=== PATIENT | female | born 1950 | race Caucasian/White ===

== ENCOUNTER 2020-06-30 08:25 | Outpatient (REF) | payer MEDICARE, SELFPAY ==
--- NOTE | 2020-06-30 08:30 | MM_ITS ---
EXAMINATION: MM SCREENING DIGITAL BREAST TOMOSYNTHESIS, BILATERAL CLINICAL INFORMATION: Screening. Asymptomatic. The lifetime risk of breast cancer based on the Tyrer-Cuzick Model is 5%. COMPARISON: Mammography: 06/28/19, 04/18/18, 03/03/17, 11/20/15 TECHNIQUE: Digital breast tomosynthesis is performed in both the craniocaudal and mediolateral oblique views along with computer-aided detection (CAD). Synthesized 2D images are generated from the tomosynthesis. FINDINGS: There are scattered areas of fibroglandular density (ACR BI-RADS breast composition Category b). There are no significant masses, abnormal calcifications, or other abnormalities. MM/MM tomosynthesis screening BI IMPRESSION: No mammographic evidence of malignancy. ASSESSMENT: BI-RADS 1: Negative RECOMMENDATION: Routine annual mammography screening. This patient's information was entered into a reminder system with a target due date for their next mammogram.
== END 2020-06-30 08:26 | disposition home or self-care (01) ==
LOC: HO.MAMMO 08:25
PROVIDERS: PCP Internal Medicine; Visit Provider Internal Medicine
DX: Z12.31 Encounter for screening mammogram for malignant neoplasm of breast (principal)
CPT/HCPCS: 77063; 77067

== ENCOUNTER 2021-05-21 14:11 | Outpatient (REF) | payer MEDICARE, SELFPAY ==
--- NOTE | ~2021-05-21 | MM_ITS ---
EXAMINATION: MM DIAGNOSTIC DIGITAL BREAST TOMOSYNTHESIS, BILATERAL Targeted left breast ultrasound CLINICAL INFORMATION: Left breast nodule 9:00 position The lifetime risk of breast cancer based on the Tyrer-Cuzick Model is 3.9%. COMPARISON: Mammography: June 30, 2020 and studies dating back to January 03, 2012 TECHNIQUE: Digital breast tomosynthesis is performed in both the craniocaudal and mediolateral oblique views along with computer-aided detection (CAD). Synthesized 2D images are generated from the tomosynthesis. Targeted left breast ultrasound FINDINGS: The breasts are almost entirely fatty (ACR BI-RADS breast composition Category a). There are no significant masses, abnormal calcifications, or other abnormalities. Targeted ultrasound evaluation of the left breast did not demonstrate any abnormal cystic or solid mass. No region of abnormal distal sound shadowing identified. Results are discussed with the patient at time of visit. MM/MM tomosynthesis diagnostic BI IMPRESSION: No mammographic or ultrasound evidence of malignancy. ASSESSMENT: BI-RADS 1: Negative RECOMMENDATION: Routine annual mammography screening due in 12 months. This patient's information was entered into a reminder system with a target due date for their next mammogram.
--- NOTE | ~2021-05-21 | US_ITS ---
EXAMINATION: US DIAGNOSTIC ULTRASOUND BREAST, LEFT CLINICAL INFORMATION: Left breast pain. Question nodule.. COMPARISON: Mammography of same day. TECHNIQUE: Ultrasound of the breast is performed with real-time saravia scale imaging and color Doppler. FINDINGS: There is no focal suspicious finding. There is no solid mass, architectural abnormality, duct ectasia, or edema in the soft tissue planes. Results are discussed with the patient at time of visit. US/US breast LT limited IMPRESSION: No ultrasound abnormality identified in region of patient's left breast pain/question nodule. ASSESSMENT: BI-RADS 1: Negative RECOMMENDATION: Routine annual mammography screening due in 12 months. Clinical follow-up This patient's information was entered into a reminder system with a target due date for their next mammogram.
== END 2021-05-21 14:12 | disposition home or self-care (01) ==
LOC: HO.MAMMO 14:11
PROVIDERS: PCP Internal Medicine; Visit Provider Obstetrics & Gynecology
DX: N64.4 Mastodynia (principal); N63.25 Unspecified lump in the left breast, overlapping quadrants
CPT/HCPCS: 76642; 77062; 77066

== ENCOUNTER 2021-07-02 08:04 | Outpatient (REF) | payer MEDICARE, SELFPAY ==
--- NOTE | ~2021-07-02 | MM_ITS ---
EXAMINATION: BONE DENSITOMETRY CLINICAL INDICATION: Menopause. COMPARISON: This is the patient's baseline examination. TECHNIQUE: Using a [employer] DXA System (software version: 13.1) manufactured by [employer], dual-energy x-ray absorptiometry was performed of the lumbar spine and left hip. The images are of good technical quality. Summary results are attached. FINDINGS: AP SPINE L1-L4: BMD 1.160 g/cm2, Z-score 0.5, T-score -0.2, normal. LEFT FEMUR, NECK: BMD 0.707 g/cm2, Z-score -1.3, T-score -2.4, osteopenia. LEFT FEMUR, TOTAL: BMD 0.829 g/cm2, Z-score -0.6, T-score -1.4, osteopenia. IDENTIFIED RISK FACTORS: Menopause, height loss, hysterectomy, bilateral oophorectomy, secondary osteoporosis. HISTORY OF FRACTURE: None listed. MEDICATIONS: Calcium, vitamin D. MM/XR DEXA axial skeleton IMPRESSION: 1. DIAGNOSIS: Osteopenia based on the lowest T-score value of -2.4 in the femoral neck applying World Health Organization criteria. 2. 10-YEAR FRACTURE RISK PREDICTION, FRAX: Major osteoporotic fracture (clinical spine, forearm, hip or shoulder) 12.7%. Hip fracture 3.0%. 3. Treatment Recommendations: NOF guidelines recommend consideration for treatment in postmenopausal women and men age 50 and older presenting with the following: -A hip or vertebral (clinical or morphometric) fracture. -T-score less than or equal to -2.5 at the femoral neck or spine after appropriate evaluation to exclude secondary causes. -Low bone mass at the hip or spine and a 10-year fracture probability by FRAX of greater than or equal to 3% for hip fracture or greater than or equal to 20% for major osteoporotic fracture based on the [place] adapted WHO algorithm. 4. Other Recommendations: All treatment decisions require clinical judgment and consideration of individual patient factors, including patient preferences, comorbidities, previous drug use, risk factors not captured in the FRAX model (e.g. frailty, falls, vitamin D deficiency, increased bone turnover, interval significant decline in bone density) and possible under or overestimation of fracture risk by FRAX. Additional medical evaluation for secondary cause of low bone mineral density may be appropriate. FUTURE SCAN RECOMMENDATION: People with diagnosed cases of osteoporosis or at high risk for fracture should have regular bone mineral density tests. For patients eligible for Medicare, routine testing is allowed once every 2 years. The testing frequency can be increased to one year for patients who have rapidly progressing disease, those who are receiving or discontinuing medical therapy to restore bone mass, or have additional risk factors.
== END 2021-07-02 08:05 | disposition home or self-care (01) ==
LOC: HO.MAMMO 08:04
PROVIDERS: Visit Provider Internal Medicine
DX: Z13.820 Encounter for screening for osteoporosis (principal); M85.80 Other specified disorders of bone density and structure, unspecified site; Z78.0 Asymptomatic menopausal state; Z90.722 Acquired absence of ovaries, bilateral; Z79.899 Other long term (current) drug therapy
CPT/HCPCS: 77080

== ENCOUNTER 2022-03-25 11:54 | Emergency (ER) | payer MEDICARE, SELFPAY ==
--- NOTE | 2022-03-25 | ECG_ITS ---
Test Reason : fall Blood Pressure : / mmHG Vent. Rate : 052 BPM Atrial Rate : 052 BPM P-R Int : 198 ms QRS Dur : 120 ms QT Int : 496 ms P-R-T Axes : 040 -42 002 degrees QTc Int : 461 ms Sinus bradycardia Left axis deviation Left ventricular hypertrophy with QRS widening ( R in aVL , [place] product ) Possible Lateral infarct , age undetermined Abnormal ECG When compared with ECG of 16-OCT-2017 12:05, Questionable change in QRS duration Borderline criteria for Lateral infarct are now Present QRS axis Shifted left Heart rate has decreased Referred By: Generic ED Physician Electronically Signed By:SWAPNIL BLACK
--- NOTE | 2022-03-25 12:06 | ED.NAVMDI ---
HPI - Nausea/Vomiting/Diarrhea General Chief complaint: Syncope Stated complaint: N/v Time Seen by Provider: 03/25/22 12:04 Source: patient and old records reviewed Mode of arrival: ambulatory Limitations: no limitations History of Present Illness HPI Narrative: 71 yp female with history of endomentrial cancer 4 years ago s/p hysterectomy, depression, hx gastric bypass w/ anastomotic ulcers, hx asthma who presents to the ER for evaluation of acute onset of nausea and feeling weak and unwell when she was getting her blood drawn at about 11am today in the Heme-Onc office. She reports Prior to the blood being drawn she was feeling her baseline self this morning. She has not eaten breakfast yet today. She took all of her morning medications, which she cannot remember the names of. she states she has not gotten her blood drawn in a few years. she reports as soon as she was getting her blood drawn she felt nauseous, weak, lethargic. She denies any chest pain or shortness of breath. No vomiting episodes and no abdominal pain. she reports feeling weak and lightheaded, like she was going to pass out. No loss of consciousness. No history of syncope. She was given sublingual Zofran. MD elicited complaint: nausea and vomiting Onset (ago): hour(s) Associated nausea: Yes Associated abdominal pain: No Location of pain: none Severity: moderate Exacerbating factors: none Relieving factors: none Associated symptoms: loss of appetite Related Data Home Medications Medication Instructions Recorded Confirmed ascorbic acid (vitamin C) 500 mg 500 mg PO DAILY 05/13/20 03/25/22 capsule multivitamin 1 tab PO DAILY 05/13/20 03/25/22 pyridoxine (vitamin B6) 50 mg 25 mg PO DAILY 05/13/20 03/25/22 tablet omeprazole 20 mg capsule,delayed 20 mg PO . 3 times a week 05/17/20 03/25/22 release sucralfate 1 gram tablet 1 g PO QID 05/17/20 03/25/22 calcium carbonate 600 mg calcium 600 mg PO DAILY 02/23/21 03/25/22 (1,500 mg) tablet (Calcium) turmeric 400 mg capsule 400 mg PO DAILY 02/23/21 03/25/22 Previous Rx's Medication Instructions Recorded loperamide 2 mg tablet (Imodium 3 mg PO DAILY PRN loose stool 90 02/23/21 A-D) days #135 tabs Allergies Allergy/AdvReac Type Severity Reaction Status Date / Time No Known Allergies Allergy Verified 03/25/22 09:04 [No Known Allergies*] Review of Systems Review of Systems: Constitutional: No Fever, No Chills ENT/Mouth: No sore throat, No Rhinorrhea, No Swallowing Difficulty Eyes: No Eye Pain, No Swelling, No Redness Cardiovascular: No Chest Pain, No SOB, No Orthopnea, No Edema Respiratory: No Cough, No Sputum, No Wheezing, No dyspnea Gastrointestinal: + Nausea, No Vomiting, No Diarrhea, No abdominal Pain, No Hematochezia, No Melena Genitourinary: No Dysuria, No Urinary Frequency, No Hematuria Musculoskeletal: No joint pain, No Myalgias Skin: No Skin Lesions, No rash Neuro: +Weakness, No Numbness, No Dizziness, + Headache Psych: No Anxiety/Panic, No Depression Heme/Lymph: No Bruising, No Lymphadenopathy Endocrine: No Polyuria, No Polydipsia Gastrointestinal: Gastrointestinal: Reports nausea PMFSH Past Medical History Medical History Anastomotic ulcer S/P gastric bypass Endometrial adenocarcinoma Family history of malignant neoplasm of ovary in first degree relative History of depression Hx of cancer of endometrium Menopause Mild intermittent asthma Varicose veins of both lower extremities Surgical History H/O gastric bypass History of endoscopy History of hysterectomy History of hysteroscopy Hx of cholecystectomy Hx of varicose veins Family History Family History (Updated 03/25/22 @ 09:[address] CMA) Father History of angina Cancer of prostate High cholesterol Anxiety Mental health disorder Mother Myocardial infarction Maternal Grandfather Stomach cancer Maternal Grandmother Colon cancer Myocardial infarction Paternal Grandfather Myocardial infarction Paternal Grandmother Myocardial infarction Brother No problems noted. Brother No problems noted. Daughter No problems noted. Sister Ovarian cancer, Onset Age: 64 Son No problems noted. Social History Social History (Updated 03/25/22 @ 09:[address] CMA) Household Members: Spouse Housing: House Are you a primary critical care clinical nurse specialist to a significant other at home: No Do you presently have visiting nurse or other home services: No Alcohol intake: never Patient Tobacco Use Status: Never used Tobacco e-Cigarette/Vaping Use: Never Used Second Hand Smoke Exposure: No Advance Directives: No Advance Directives Information Provided: No service: No Current occupational status: retired Physical Exam Vital Signs: Vital Signs: Last Vital Signs Temp 97.6 F 03/25/22 12:09 Pulse 55 03/25/22 13:23 Resp 18 03/25/22 12:09 BP 140/62 H 03/25/22 13:23 Pulse Ox 99 03/25/22 12:09 O2 Del Method 03/25/22 12:09 Oxygen Flow Rate 2 03/25/22 12:09 BMI result Body Mass Index 37.5 Appearance: Alert. Oriented X3. Laying on the stretcher with eyes closed and a cool cloth on her face Eyes: Pupils equal, round and reactive to light. ENT: Pharynx normal. Neck: Normal inspection. Neck supple. CVS: Normal heart rate and rhythm. Pulses normal. Respiratory: No respiratory distress. Breath sounds normal. Abdomen: Soft and nontender. +BS x4 Skin: Skin warm and dry. Normal skin color. Normal skin turgor. No rashes. Extremities: No lower extremity edema. Neuro: Oriented X 3. No motor deficit. No sensory deficit. Course Course Course Narrative: 71-year-old female present to the ER for evaluation of nausea and weakness after she was getting her blood drawn today. Still nauseated and slightly lethargic on arrival but oriented nonfocal. She is hemodynamically stable. Her lab workup from upstairs is unremarkable. Will give her a L of IV fluids and monitor her response to Zofran. Most likely vasovagal episode with blood draw. Doubt acute cardiac event. Reevaluation(s) Reevaluation #1: Patient is feeling much better. She is tolerating p.o. and ambulating around the emergency department. She would like to be discharged home. Comfortable DC home with planned follow-up with her PCP and Dr. Reid for further evaluation and management. Stable for DC return precautions were discussed. MDM - Nausea/Vomiting/Diarrhea Medical Records Attestation: I reviewed the patient's medical records. Lab Data Attestation: I reviewed the patient's lab results. ECG Data Attestation: I personally reviewed and interpreted this ECG as follows: ECG interpretation date: 03/25/22 ECG interpretation time: 15:09 Prior ECG tracings: available for review Interpretation: sinus bradycardia sinus bradycardia ventricular rate 52 beats per minute common normal LA interval, T-wave inversion in V1 and lead 3. No ST segment elevations or depressions Critical Care Time Critical Care Time Critical Care Time: No Discharge Plan Discharge Clinical Impression: Vasovagal near syncope Patient Disposition: Home, Self-Care Instructions: Near Syncope (ED) Additional Instructions: Your lab workup today was unremarkable. Your EKG did not show any concerning signs. Recommend rest today, drink plenty of water. Follow up with your doctor and Dr. Reid. If you develop new or worsening symptoms call 911 or come back to the ER for further evaluation. Prescriptions: No Action calcium carbonate [Calcium 600] 600 mg calcium (1,500 mg) tablet 600 mg PO DAILY turmeric 400 mg capsule 400 mg PO DAILY loperamide [Imodium A-D] 2 mg tablet 3 mg PO DAILY PRN (Reason: loose stool) 90 Days Qty: 135 0RF pyridoxine (vitamin B6) 50 mg tablet 25 mg PO DAILY multivitamin Tablet 1 tab PO DAILY ascorbic acid (vitamin C) 500 mg capsule 500 mg PO DAILY omeprazole 20 mg capsule,delayed release(DR/EC) 20 mg PO . 3 times a week Label Comments: prescribed by Dr. Barragan sucralfate 1 gram tablet 1 g PO QID Label Comments: prescribed by Dr. Barragan Referrals: Mildred Reid MD [Physician] -
[2022-03-25 12:09] VITALS: BP 140/67; PULSE 56; RESP 18; TEMP 36.4; O2SAT 99; BMI 37.5
[2022-03-25] MEDS: 0.9 % Sodium Chloride 1,000 ML 999 ML IVCONT (12:41)
[2022-03-25 13:23] VITALS: BP 140/62; PULSE 55
== END 2022-03-25 16:50 | disposition home or self-care (01) ==
PROVIDERS: Physician Assistant; Emergency Provider Emergency Medicine
DX: R55 Syncope and collapse (principal); R11.2 Nausea with vomiting, unspecified; R00.1 Bradycardia, unspecified; Z79.899 Other long term (current) drug therapy
CPT/HCPCS: 93005; 96360; 96361; 99284; 99285

== ENCOUNTER 2022-04-29 14:21 | Outpatient (REF) | payer MEDICARE, SELFPAY ==
[2022-04-29 16:40] LABS: MANUAL DIFF FLAG NO
[2022-04-29 16:45] LABS: Basophils Absolute Auto 0.1 X10*3/uL (0.0-0.2); Basophils Percent Auto 0.8 % (0-2); Eosinophils Absolute Auto 0.1 X10*3/uL (0.0-0.4); Eosinophils Percent Auto 1.4 % (0-4); Hematocrit 42.6 % (37.0-47.0); Hemoglobin 13.9 g/dl (12.0-16.0); Imm Gran Abs Auto 0.05 X10*3/uL (0.00-0.03); Imm Gran Pct Auto 0.5 % (0.0-0.4); Lymphocytes Absolute Auto 2.5 X10*3/uL (1.2-4.9); Lymphocytes Percent Auto 24.1 % (20-40); Mean Corpuscular HGB Conc 32.6 g/dl (31.0-35.0); Mean Corpuscular Volume 88.8 fL (80.0-98.0); Mean Platelet Volume 9.7 fL (9.4-12.3); Monocytes Absolute Auto 0.6 X10*3/uL (0.1-1.2); Monocytes Percent Auto 5.8 % (2-11); Neutrophils Absolute Auto 6.9 x10*3/uL (2.0-8.3); Neutrophils Percent Auto 67.4 % (45-73); Platelet Count 365 X10*3/uL (160-400); Red Cell Distribution Width 13.2 % (11.0-16.0); White Blood Count 10.3 X10*3/uL (4.8-10.8)
[2022-04-29 16:50] LABS: Anion Gap 18 (12-20); Blood Urea Nitrogen 9 mg/dL (9-16); Calcium 8.9 mg/dL (8.4-10.2); Carbon Dioxide 25 mmol/L (22-29); Chloride 101 mmol/L (96-108); Estimated Glomerular Filt Rate > 60; Glucose Fasting 100 mg/dL (60-99); Magnesium 2.3 mg/dL (1.6-2.6); Potassium 4.8 mmol/L (3.3-5.1); Sodium 139 mmol/L (135-145)
== END 2022-04-29 14:22 | disposition home or self-care (01) ==
LOC: HO.HMGCLDS 14:21
PROVIDERS: PCP Internal Medicine; Visit Provider Internal Medicine
DX: A04.72 Enterocolitis due to Clostridium difficile, not specified as recurrent (principal)
CPT/HCPCS: 36415; 80048; 83735; 85025

== ENCOUNTER 2022-05-27 08:43 | Outpatient (REF) | payer MEDICARE, SELFPAY ==
--- NOTE | ~2022-05-27 | MM_ITS ---
EXAMINATION: MM SCREENING DIGITAL BREAST TOMOSYNTHESIS, BILATERAL CLINICAL INFORMATION: Screening. Asymptomatic. COMPARISON: Mammography: 05/21/2021, 06/30/2020, 06/28/2019; left breast ultrasound 05/21/2021 TECHNIQUE: Digital breast tomosynthesis is performed in both the craniocaudal and mediolateral oblique views along with computer-aided detection (CAD). Synthesized 2D images are generated from the tomosynthesis. FINDINGS: The breasts are almost entirely fatty (ACR BI-RADS breast composition Category a). Background stromal and fibroglandular densities are normal. No developing density or interval mass or architectural abnormality. No abnormal calcifications. The axilla are unremarkable. No skin thickening or coarsening of the Allan's ligaments. No significant changes. MM/MM tomosynthesis screening BI IMPRESSION: No mammographic evidence of malignancy. ASSESSMENT: BI-RADS 1: Negative RECOMMENDATION: Routine annual mammography screening. This patient's information was entered into a reminder system with a target due date for their next mammogram.
== END 2022-05-27 08:44 | disposition home or self-care (01) ==
LOC: HO.MAMMO 08:43
PROVIDERS: PCP Internal Medicine; Visit Provider Internal Medicine
DX: Z12.31 Encounter for screening mammogram for malignant neoplasm of breast (principal)
CPT/HCPCS: 77063; 77067

== ENCOUNTER 2022-09-27 12:46 | Outpatient (AMB) | payer MEDICARE, SELFPAY ==
--- NOTE | 2022-09-27 13:13 | A.OFFPC_ITS ---
Vital Signs 09/27/22 13:17 Height 5 ft 1 in Weight 187 lb BMI 35.3 BP 118/70 Blood Pressure Location Lt brachial Position Sitting Pulse 63 Pulse Source Pulse Oximeter Pulse Oximetry (%) 100 Oxygen Delivery Method Room Air Intake Visit Reasons: Lump on Private Area Intake Note: Pt is here today c/o lump rectal area Allergies No Known Allergies [No Known Allergies*] Allergy (Verified 09/27/22 14:05) Medication List - Last Reconciled 09/27/22 by Ayla Henley MD ascorbic acid (vitamin C) 500 mg PO DAILY calcium carbonate (Calcium) 600 mg PO DAILY famotidine (Pepcid AC) 10 mg PO BEDTIME multivitamin 1 tab PO DAILY pyridoxine (vitamin B6) 25 mg PO DAILY sucralfate 1 g PO QID turmeric 400 mg PO DAILY Tobacco use date assessed: 09/27/22 Fall risk assessment: No Falls in past year Last assessed Fall Risk: 09/27/22 [facility] Medical History Anastomotic ulcer S/P gastric bypass C. difficile colitis Endometrial adenocarcinoma External hemorrhoids without complication Family history of malignant neoplasm of ovary in first degree relative History of depression Hx of cancer of endometrium Menopause Mild intermittent asthma Varicose veins of both lower extremities Surgical History H/O gastric bypass History of endoscopy History of hysterectomy History of hysteroscopy Hx of cholecystectomy Hx of varicose veins Family History Father History of angina Cancer of prostate High cholesterol Anxiety Mental health disorder Mother Myocardial infarction Maternal Grandfather Stomach cancer Maternal Grandmother Colon cancer Myocardial infarction Paternal Grandfather Myocardial infarction Paternal Grandmother Myocardial infarction Brother No problems noted. Brother No problems noted. Daughter No problems noted. Sister Ovarian cancer, Onset Age: 64 Son No problems noted. Social History Household Members: Spouse Housing: House Are you a primary hourly caregiver to a significant other at home: No Do you presently have visiting nurse or other home services: No Alcohol intake: never Patient Tobacco Use Status: Never used Tobacco e-Cigarette/Vaping Use: Never Used Second Hand Smoke Exposure: No service: No Current occupational status: retired Cognitive needs: No Hearing needs: No Vision needs: Yes Questionnaire PHQ-9 Over the last 2 weeks, how often have you been bothered by any of the following problems? 1. Little interest or pleasure in doing things: not at all 2. Feeling down, depressed, or hopeless: not at all 3. Trouble falling or staying asleep, or sleeping too much: not at all 4. Feeling tired or having little energy: not at all 5. Poor appetite or overeating: not at all 6. Feeling bad about yourself - or that you are a failure or have let yourself or your family down: not at all 7. Trouble concentrating on things, such as reading the newspaper or watching television: not at all 8. Moving or speaking so slowly that other people could have noticed. Or the opposite - being so fidgety or restless that you have been moving around a lot more than usual: not at all 9. Thoughts that you would be better off or of hurting yourself in some way: not at all Total score: 0 Depression Screening Interpretation: Negative 29201 - PHQ-9 Billing: Yes Source: Developed by Drs. Jim Winn, Lavonne Hobbs, Brian Sutton and colleagues, with an educational maki from [employer]. Thrive Questionnaire Declines Thrive assessment: No Date Thrive assessed: 09/27/22 I am a: Patient What is your living situation today?: I have a steady place to live Within the past 12 months, did the food you bought not last and you didn't have the money to get more?: Never true Within the past 12 months, did you worry whether your food would run out before you got money to buy more?: Never true Do you have trouble paying for medicines?: No Do you have trouble getting transportation to medical appointments?: No Do you have trouble paying your heating and electricity bill?: No Do you have trouble taking care of your child, family member or friend?: No Do you have trouble with day-to-day activities such as bathing, preparing meals, shopping, managing finances, etc.?: No Are you currently unemployed and looking for a job?: No Are you interested in more education?: No THANH-7 AMB Questionnaire THANH-7 Date THANH - 7 assessed: 09/27/22 Feeling nervous, anxious, or on edge: 0 = Not at all Not being able to stop or control worryin = Not at all Worrying too much about different things: 0 = Not at all Trouble relaxin = Not at all Being so restless that it is hard to sit still: 0 = Not at all Becoming easily annoyed or irritable: 0 = Not at all Feeling afraid as if something awful might happen: 0 = Not at all Total THANH-7 score (0-4 normal; 5-9 mild; 10-14 moderate; 15-21 severe): 0 Source: Developed by Drs. Jim Winn, Lavonne Hobbs, Brian Sutton and colleagues, with an educational maki from [employer]. THANH-7 Assessment Billing THANH-7 Assessment Tool: THANH-7 Assessment 77612 Physical exam (Primary Care) Vital Signs: Last Vital Signs Pulse 63 09/27/22 13:17 BP 118/70 09/27/22 13:17 Pulse Ox 100 09/27/22 13:17 Oxygen Delivery Method Room Air 09/27/22 13:17 BMI result Body Mass Index 35.3 Tobacco/Smoking Status: Tobacco use Status Tobacco use date assessed 09/27/22 09/27/22 13:15 Patient Tobacco Use Status Never used Tobacco 09/27/22 13:15 e-Cigarette/Vaping Use Never Used 09/27/22 13:15 PHQ-9: PHQ-9 Score PHQ-9: Total score 0 09/27/22 13:22 Depression Screening Interpretation: Negative Thrive Assessment: Date of Thrive Assessment Date Thrive assessed 09/27/22 09/27/22 13:22 Assessment and Plan Assessment & Plan (1) Hx of cancer of endometrium: Code(s): Z85.42 - Personal history of malignant neoplasm of other parts of uterus (2) Family history of malignant neoplasm of ovary in first degree relative: Code(s): Z80.41 - Family history of malignant neoplasm of ovary (3) External hemorrhoids without complication: Code(s): K64.4 - Residual hemorrhoidal skin tags Orders: Orders CA-125 Today Z80.41 - Family history of malignant neoplasm of ovary, Z85.42 - Personal history of malignant neoplasm of other parts of uterus Coding Level of Care Code Est Pt Level 3 (04755) Diagnoses Hx of cancer of endometrium Z85.42 Family history of malignant neoplasm of ovary in first degree relative Z80.41 External hemorrhoids without complication K64.4 Additional Codes THANH-7 Assessment Billing - THANH-7 Assessment Tool: THANH-7 Assessment [id number] ([id number])
[2022-09-27 13:17] VITALS: BP 118/70; PULSE 63; O2SAT 100; BMI 35.3
== END 2022-09-27 15:34 | disposition home or self-care (01) ==
LOC: HO.HMGC 12:46
PROVIDERS: PCP Internal Medicine; Visit Provider Internal Medicine
DX: Z85.42 Personal history of malignant neoplasm of other parts of uterus (principal); Z80.41 Family history of malignant neoplasm of ovary; K64.4 Residual hemorrhoidal skin tags
CPT/HCPCS: 99499

== ENCOUNTER 2022-09-27 14:05 | Outpatient (REF) | payer MEDICARE, SELFPAY ==
[2022-09-29 10:03] LABS: CA-125 6 U/mL (<35)
== END 2022-09-27 14:06 | disposition home or self-care (01) ==
LOC: HO.HMGCLDS 14:05
PROVIDERS: Absent Provider Internal Medicine Medical Oncology; PCP Internal Medicine; Visit Provider Internal Medicine
DX: Z85.42 Personal history of malignant neoplasm of other parts of uterus (principal); Z80.41 Family history of malignant neoplasm of ovary
CPT/HCPCS: 36415; 86304

== ENCOUNTER 2022-11-01 14:04 | Outpatient (REF) | payer MEDICARE, SELFPAY ==
[2022-11-01 17:11] LABS: Hematocrit 42.5 % (37.0-47.0); Hemoglobin 14.3 g/dl (12.0-16.0); Mean Corpuscular HGB Conc 33.6 g/dl (31.0-35.0); Mean Corpuscular Hemoglobin 30.1 pg (27.0-33.0); Mean Corpuscular Volume 89.5 fL (80.0-98.0); Mean Platelet Volume 10.7 fL (9.4-12.3); Platelet Count 278 X10*3/uL (160-400); Red Blood Count 4.75 X10*6/uL (4.20-5.50); White Blood Count 13.3 X10*3/uL (4.8-10.8)
[2022-11-01 17:21] LABS: Alanine Aminotransferase 9 U/L (0-31); Albumin Level 3.4 g/dL (3.5-5.0); Alkaline Phosphatase 69 U/L (39-117); Anion Gap 13 (12-20); Aspartate Amino Transferase 16 U/L (5-31); Bilirubin Direct 0.2 mg/dL (0.0-0.5); Bilirubin Total 0.6 mg/dL (0.0-1.0); Blood Urea Nitrogen 10 mg/dL (9-16); Calcium 9.1 mg/dL (8.4-10.2); Carbon Dioxide 27 mmol/L (22-29); Chloride 106 mmol/L (96-108); Estimated Glomerular Filt Rate > 60; Glucose Random 101 mg/dL (60-115); Potassium 4.3 mmol/L (3.3-5.1); Sodium 142 mmol/L (135-145); Total Protein 6.1 g/dL (6.5-8.0)
[2022-11-01 17:54] LABS: Erythrocyte Sedimentation Rate 8 MM/HR (0-20)
== END 2022-11-01 14:05 | disposition home or self-care (01) ==
LOC: HO.HMGCLDS 14:04
PROVIDERS: Internal Medicine; PCP Internal Medicine; Visit Provider Physician Assistant
DX: R19.7 Diarrhea, unspecified (principal)
CPT/HCPCS: 36415; 80048; 80076; 85027; 85652

== ENCOUNTER 2022-11-02 08:37 | Outpatient (REF) | payer MEDICARE, SELFPAY ==
[2022-11-02 13:24] LABS: CDiff Gene PCR POSITIVE (Negative)
[2022-11-02 15:38] LABS: Adenovirus F 40/41 Not Detected (Not Detect.); Astrovirus Not Detected (Not Detect.); Campylobacter Not Detected (Not Detect.); Cryptosporidium Not Detected (Not Detect.); Cyclospora cayetanensis Not Detected (Not Detect.); E. coli EAEC Not Detected (Not Detect.); E. coli EPEC Not Detected (Not Detect.); E. coli ETEC Not Detected (Not Detect.); E. coli STEC Not Detected (Not Detect.); Entamoeba histolytica Not Detected (Not Detect.); Giardia lamblia Not Detected (Not Detect.); Norovirus GI/GII Not Detected (Not Detect.); Plesiomonas shigelloides Not Detected (Not Detect.); Rotavirus A Not Detected (Not Detect.); Salmonella Not Detected (Not Detect.); Sapovirus Not Detected (Not Detect.); Shigella sp./EIEC Not Detected (Not Detect.); Vibrio Not Detected (Not Detect.); Vibrio Cholerae Not Detected (Not Detect.); Yersinia enterocolitica Not Detected (Not Detect.)
[2022-11-02 16:07] LABS: CDiff Toxin Positive (Negative)
[2022-11-02 16:08] LABS: CDIFF Internal ctrl Dots and bkg OK (V)
== END 2022-11-02 08:38 | disposition home or self-care (01) ==
LOC: HO.HMGCLNP 08:37
PROVIDERS: PCP Internal Medicine; Visit Provider Physician Assistant
DX: R19.7 Diarrhea, unspecified (principal)
CPT/HCPCS: 87177; 87209; 87324; 87493; 87507

== ENCOUNTER 2023-06-21 09:30 | Outpatient (REF) | payer MEDICARE, SELFPAY | END 2023-06-21 09:31 | disposition home or self-care (01) | LOC: HO.MAMMO 09:30 | PROVIDERS: PCP Internal Medicine; Visit Provider Internal Medicine | DX: Z12.31 Encounter for screening mammogram for malignant neoplasm of breast (principal) | CPT/HCPCS: 77063; 77067 ==

== ENCOUNTER → 2023-06-21 09:45 | Outpatient (BNV) | payer MEDICARE, SELFPAY | PROVIDERS: PCP Internal Medicine; Visit Provider Radiology Diagnostic Radiology | DX: Z12.31 Encounter for screening mammogram for malignant neoplasm of breast (principal) | CPT/HCPCS: 77063; 77067 ==

== ENCOUNTER 2023-11-14 07:37 | Outpatient (REF) | payer MEDICARE, SELFPAY ==
--- NOTE | 2023-11-14 07:48 | ECG_ITS ---
Test Reason : preop Blood Pressure : / mmHG Vent. Rate : 059 BPM Atrial Rate : 059 BPM P-R Int : 180 ms QRS Dur : 114 ms QT Int : 446 ms P-R-T Axes : 068 -59 025 degrees QTc Int : 441 ms Sinus bradycardia Right bundle branch block Left anterior fascicular block Bifascicular block Minimal voltage criteria for LVH, may be normal variant ( R in aVL ) Possible Lateral infarct (cited on or before 25-MAR-2022) Abnormal ECG When compared with ECG of 25-MAR-2022 11:59, (RBBB and left anterior fascicular block) is now Present Referred By: Ayla Henley Electronically Signed By:LUCIO ZEPEDA MD
== END 2023-11-14 07:38 | disposition home or self-care (01) ==
LOC: HO.XRAY 07:37
PROVIDERS: PCP Internal Medicine; Visit Provider Internal Medicine
DX: Z01.818 Encounter for other preprocedural examination (principal)
CPT/HCPCS: 93005

== ENCOUNTER → 2023-11-14 07:48 | Outpatient (BNV) | payer MEDICARE, SELFPAY | PROVIDERS: PCP Internal Medicine; Visit Provider Internal Medicine Cardiovascular Disease | DX: R00.1 Bradycardia, unspecified (principal); I45.10 Unspecified right bundle-branch block; I44.4 Left anterior fascicular block; I45.2 Bifascicular block | CPT/HCPCS: 93010 ==

== ENCOUNTER 2023-11-22 08:16 | Outpatient (AMB) | payer MEDICARE, SELFPAY ==
[2023-11-22 08:27] VITALS: BP 122/70; PULSE 58; O2SAT 99; BMI 36.3
--- NOTE | 2023-11-22 08:27 | A.OFFPC_ITS ---
Vital Signs 11/22/23 08:27 Height 5 ft 1 in Weight 192 lb BMI 36.3 BP 122/70 Blood Pressure Location Lt brachial Position Sitting Pulse 58 Pulse Source Pulse Oximeter Pulse Oximetry (%) 99 Oxygen Delivery Method Room Air Intake Visit Reasons: cataract eye surgery Intake Note: Pt is here today pre-op Lt eye cataract on 12/13/23 & Rt eye cataract 12/27/[address] Jacob Allergies No Known Allergies [No Known Allergies*] Allergy (Verified 11/22/23 09:22) Medication List - Last Reconciled 11/22/23 by Ayla Henley MD ascorbic acid (vitamin C) 500 mg PO DAILY calcium carbonate (Calcium 600) 600 mg PO DAILY famotidine (Pepcid AC) 10 mg PO BEDTIME Lactobac. rhamnosus GG-inulin 10 billion cell -200 mg ([employer] [facility]) tabs PO Lactobacillus rhamnosus GG ([email or web address]) 1 cap PO DAILY multivitamin 1 tab PO DAILY psyllium husk (Metamucil) 0.4 grams PO BEDTIME pyridoxine (vitamin B6) 25 mg PO DAILY sucralfate 1 g PO QID turmeric 400 mg PO DAILY Tobacco use date assessed: 11/22/23 Fall risk assessment: No Falls in past year Last assessed Fall Risk: 11/22/23 Dental Screening Dental Screen Date: 11/22/23 Did you have a dental visit in the last 12 months?: Yes Did you have a dental problem in the last 6 months where you did not have access to dental care?: Yes Was dental information given to patient?: Patient has dentist HPI cataract eye surgery HPI Details 73-year-old lady with past medical histo ry significant for endometrial cancer status post hysterectomy in 2018 [facility] Medical History Family history of early CAD Left anterior fascicular block (LAFB) External hemorrhoids without complication C. difficile colitis History of depression Hx of cancer of endometrium Family history of malignant neoplasm of ovary in first degree relative Menopause Endometrial adenocarcinoma Anastomotic ulcer S/P gastric bypass Varicose veins of both lower extremities Mild intermittent asthma Surgical History (Updated 11/23/23 @ 02:34 by Ayla Henley MD) History of total abdominal hysterectomy and bilateral salpingo-oophorectomy Hx of varicose veins History of hysteroscopy History of endoscopy Hx of cholecystectomy H/O gastric bypass Family History Father History of angina Cancer of prostate High cholesterol Anxiety Mental health disorder Mother Myocardial infarction Maternal Grandfather Stomach cancer Maternal Grandmother Colon cancer Myocardial infarction Paternal Grandfather Myocardial infarction Paternal Grandmother Myocardial infarction Brother No problems noted. Brother No problems noted. Daughter No problems noted. Sister Ovarian cancer, Onset Age: 64 Son No problems noted. Social History Household Members: Spouse Housing: House Are you a primary pet caregiver to a significant other at home: No Do you presently have visiting nurse or other home services: No Alcohol intake: never Patient Tobacco Use Status: Never used Tobacco e-Cigarette/Vaping Use: Never Used Second Hand Smoke Exposure: No service: No Current occupational status: retired Cognitive needs: No Hearing needs: No Vision needs: Yes Questionnaire PHQ-9 Over the last 2 weeks, how often have you been bothered by any of the following problems? 1. Little interest or pleasure in doing things: not at all 2. Feeling down, depressed, or hopeless: not at all 3. Trouble falling or staying asleep, or sleeping too much: not at all 4. Feeling tired or having little energy: several days 5. Poor appetite or overeating: not at all 6. Feeling bad about yourself - or that you are a failure or have let yourself or your family down: not at all 7. Trouble concentrating on things, such as reading the newspaper or watching television: not at all 8. Moving or speaking so slowly that other people could have noticed. Or the opposite - being so fidgety or restless that you have been moving around a lot more than usual: not at all 9. Thoughts that you would be better off or of hurting yourself in some way: not at all Total score: 1 Depression Screening Interpretation: Negative Depression Screening Done: Yes 29769 - PHQ-9 Billing: Yes Source: Developed by Drs. Jim Winn, Lavonne Hobbs, Brian Sutton and colleagues, with an educational maki from [employer]. Thrive Questionnaire Date Thrive assessed: 11/22/23 I am a: Patient What is your living situation today?: I have a steady place to live Within the past 12 months, did the food you bought not last and you didn't have the money to get more?: Never true Within the past 12 months, did you worry whether your food would run out before you got money to buy more?: Never true Do you have trouble paying for medicines?: No Do you have trouble getting transportation to medical appointments?: No Do you have trouble paying your heating and electricity bill?: No Do you have trouble taking care of your child, family member or friend?: No Do you have trouble with day-to-day activities such as bathing, preparing meals, shopping, managing finances, etc.?: No Are you currently unemployed and looking for a job?: No Are you interested in more education?: No THRIVE Score: 0 AUDIT C Alcohol Use Questionnaire (AUDIT-C) 1. How often do you have a drink containing alcohol?: Never Total Score: 0 THANH-7 AMB Questionnaire THANH-7 Date THANH - 7 assessed: 11/22/23 Feeling nervous, anxious, or on edge: 1 = Several days Not being able to stop or control worryin = Several days Worrying too much about different things: 1 = Several days Trouble relaxin = Several days Being so restless that it is hard to sit still: 0 = Not at all Becoming easily annoyed or irritable: 0 = Not at all Feeling afraid as if something awful might happen: 0 = Not at all Total THANH-7 score (0-4 normal; 5-9 mild; 10-14 moderate; 15-21 severe): 4 Source: Developed by Drs. Jim Winn, Lavonne Hobbs, Brian Sutton and colleagues, with an educational maki from [employer]. THANH-7 Assessment Billing THANH-7 Assessment Tool: THANH-7 Assessment 10174 Review of Systems Const Denies body aches, Denies fatigue, Denies fever(s), Denies headache(s) and Denies weakness Eyes Reports blurry vision ENT Denies dizziness, Denies headache(s), Denies nasal congestion, Denies nasal discharge and Denies sore throat Card Denies chest pain, Denies lightheadedness and Denies dyspnea Resp Denies chest congestion, Denies cough and Denies dyspnea GI Denies change in bowel habits, Denies dyspepsia, Denies heartburn (Controlled on famotidine and sucralfate) and Denies nausea Denies urinary frequency, Denies dysuria and Denies urinary urgency Musc Reports muscle cramps (Occasional leg cramp) and Denies muscle weakness Skin/Breast Denies breast pain, Denies breast mass and Denies rash Neuro Denies dizziness, Denies headache(s) and Denies weakness Psych Reports no additional complaints Endo Denies fatigue Evans/Lymph Denies easy bruising Aller/Immun Reports no additional complaints Physical exam (Primary Care) Vital Signs: Last Vital Signs Pulse 58 11/22/23 08:27 BP 122/70 11/22/23 08:27 Pulse Ox 99 11/22/23 08:27 Oxygen Delivery Method Room Air 11/22/23 08:27 BMI result Body Mass Index 36.3 Tobacco/Smoking Status: Tobacco use Status Tobacco use date assessed 11/22/23 11/22/23 08:33 Patient Tobacco Use Status Never used Tobacco 11/22/23 08:33 e-Cigarette/Vaping Use Never Used 11/22/23 08:33 PHQ-9: PHQ-9 Score PHQ-9: Total score 5 11/22/23 09:23 Depression Screening Interpretation: Negative Thrive Assessment: Date of Thrive Assessment Date Thrive assessed 11/22/23 11/22/23 08:39 Advance Care Planning discussion: Completed/Scanned Date of discussion: 11/22/23 Who was present: Patient Forms completed: Health Care Proxy Time spent: 16-45 minutes Actual minutes spent: 16 Const General: comfortable and no acute distress Orientation/consciousness: patient oriented x3 HENMT Mouth: Normal oral and palatal mucosa present, oropharynx normal and moist mucous membranes Eyes Pupils: Equal, round and reactive pupils present Neck Neck: Yes full ROM, Yes no lymphadenopathy and Yes supple Resp Effort & Inspection: normal respiratory effort and able to speak in complete sentences Auscultation: clear to auscultation bilaterally Cardio Rate: regular rate Rhythm: regular rhythm Heart sounds: S1 normal heart sound present and S2 normal heart sound present GI Inspection: Yes normal to inspection Palpation (GI): Soft to palpation, nontender and no masses Auscultation: normal bowel sounds Back/Spine/Pelvis Back: No back tenderness Neuro General: patient oriented x3, gait normal, tone normal, moves all extremities, Normal light touch and pain sensation and no focal motor deficits Cranial nerves: Yes Equal, round and reactive pupils present Cognition (Neuro): normal cognition Gait exam (Neuro): Normal gait present Motor exam (neuro): 5/5 motor strength present throughout Extrem General: Yes full ROM, Yes no joint enlargement, Yes no calf tenderness and Yes normal gait Results Reviewed Results Reviewed: Name: Jonelle Trammell Age/Sex: 73/F : 1950 Unit#: [id number] Attend Dr: Ayla Henley MD Re11/22/23 Status: DEP [facility] Disch: SPEC : [id number] KELI: 11/22/23 STATUS: COMP REQ : [id number] RECD: 11/22/[address]: Ayla Henley MD COMP: 11/22/23 ENTERED: 11/22/23 [facility]: ORDERED: Met Prof Fast, AST, ALT, Lipid Panel, Vitamin D 25-OH Test Result Flag Reference Sodium 140 135-145 mmol/L Potassium 4.2 3.3-5.1 mmol/L CL 103 96-108 mmol/L CO2 27 22-29 mmol/L Gap 14 12-20 BUN 8 L 9-16 mg/dL Creat 0.70 0.5-1.4 mg/dL EGFR > 60 NOTE: For -[place] Citizen individuals, multiply the result by 1.210. Chronic Kidney Disease: Estimated GFR < 60 mL/min/1.73m2 Severe Kidney Disease: Estimated GFR < 15 mL/min/1.73m2 FBS 97 60-99 mg/dL CA 9.9 # 8.4-10.2 mg/dL AST (GOT) 20 5-31 U/L ALT (GPT) 11 0-31 U/L Triglyceride 106 <150 mg/dL Desirable Triglyceride: less than 150 mg/dL Borderline High Triglyceride 150-199 mg/dL High Triglyceride: 200-499 mg/dL Very High Triglyceride: greater than or equal to 5OO mg/dL Cholesterol 180 <200 mg/dL Desirable Cholesterol: less than 200 mg/dL Borderline High Cholesterol: 200-239 mg/dL High Cholesterol: greater than 239 mg/dL LDL Calculated 91 <100 mg/dL Desirable LDL: less than 100 mg/dL Near Optimal/Above Optimal LDL: 110-129 mg/dL Borderline High LDL: 130-159 mg/dL High LDL: 160-189 mg/dL Very High LDL: greater than or equal to 190 mg/dL HDL 68 >40 mg/dL Desirable HDL: greater than 40 mg/dL Note: This HDL assay may give artificially low results in patients with liver disease. Vit D 25-OH Tot 44.3 >30 ng/mL Health Based Reference Values* < 20 ng/mL Deficient 20-30 ng/mL Insufficient > 30 ng/mL Sufficient Assessment and Plan Assessment & Plan (1) Encounter for pre-operative examination: Code(s): Z01.818 - Encounter for other preprocedural examination Plan: 73-year-old lady here today for preoperative exam for cataract surgery with IOL, requested by Dr. Jacob. She no known coronary artery disease , no hypertension or pulmonary disease. Preoperative exam is unremarkable. EKG showed presence of sinus bradycardia with new left anterior fascicular block, patient asymptomatic. Latest fasting labs done showed normal fasting glucose, electrolytes and renal function as well as lipids and vitamin-D level. Patient with low cardiac risk index for proposed surgery (2) Left anterior fascicular block (LAFB): Code(s): I44.4 - Left anterior fascicular block Plan: Currently asymptomatic (3) Family history of early CAD: Code(s): Z82.49 - Family history of ischemic heart disease and other diseases of the circulatory system Plan: Strong family history of early CAD, new finding of left anterior fascicular block on EKG,, cardiology consultation obtained for further evaluation (4) Hx of cancer of endometrium: Code(s): Z85.42 - Personal history of malignant neoplasm of other parts of uterus Plan: Status post TAHBSO in 2018, 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 (5) External hemorrhoids without complication: Code(s): K64.4 - Residual hemorrhoidal skin tags Plan: Currently asymptomatic Orders: Orders Vitamin D 25-OH Total 11/22/23 K28.9 - Gastrojejunal ulcer, unspecified as acute or chronic, without hemorrhage or perforation, K64.4 - Residual hemorrhoidal skin tags, Z01.818 - Encounter for other preprocedural examination, Z13.220 - Encounter for screening for lipoid disorders, Z78.0 - Asymptomatic menopausal state, Z85.42 - Personal history of malignant neoplasm of other parts of uterus Lipid Panel 11/22/23 K28.9 - Gastrojejunal ulcer, unspecified as acute or chronic, without hemorrhage or perforation, K64.4 - Residual hemorrhoidal skin tags, Z01.818 - Encounter for other preprocedural examination, Z13.220 - Encounter for screening for lipoid disorders, Z78.0 - Asymptomatic menopausal state, Z85.42 - Personal history of malignant neoplasm of other parts of uterus Alanine Aminotransferase 11/22/23 K28.9 - Gastrojejunal ulcer, unspecified as acute or chronic, without hemorrhage or perforation, K64.4 - Residual hemorrhoidal skin tags, Z01.818 - Encounter for other preprocedural examination, Z13.220 - Encounter for screening for lipoid disorders, Z78.0 - Asymptomatic menopausal state, Z85.42 - Personal history of malignant neoplasm of other parts of uterus Aspartate Amino Transferase 11/22/23 K28.9 - Gastrojejunal ulcer, unspecified as acute or chronic, without hemorrhage or perforation, K64.4 - Residual hemorrhoidal skin tags, Z01.818 - Encounter for other preprocedural examination, Z13.220 - Encounter for screening for lipoid disorders, Z78.0 - Asymptomatic menopausal state, Z85.42 - Personal history of malignant neoplasm of other parts of uterus Vitamin B12 and Folate 11/22/23 K28.9 - Gastrojejunal ulcer, unspecified as acute or chronic, without hemorrhage or perforation, K64.4 - Residual hemorrhoidal skin tags, Z01.818 - Encounter for other preprocedural examination, Z13.220 - Encounter for screening for lipoid disorders, Z78.0 - Asymptomatic menopausal state, Z85.42 - Personal history of malignant neoplasm of other parts of uterus Basic Metabolic Panel Fasting 11/22/23 K28.9 - Gastrojejunal ulcer, unspecified as acute or chronic, without hemorrhage or perforation, K64.4 - Residual hemorrhoidal skin tags, Z01.818 - Encounter for other preprocedural examination, Z13.220 - Encounter for screening for lipoid disorders, Z78.0 - Asymptomatic menopausal state, Z85.42 - Personal history of malignant neoplasm of other parts of uterus Referrals Cardiology Referral I44.4 - Left anterior fascicular block, Z82.49 - Family history of ischemic heart disease and other diseases of the circulatory system Coding Level of Care Code Est Pt Level 4 (95668) Diagnoses Encounter for pre-operative examination Z01.818 Left anterior fascicular block (LAFB) I44.4 Family history of early CAD Z82.49 Hx of cancer of endometrium Z85.42 External hemorrhoids without complication K64.4 Additional Codes THANH-7 Assessment Billing - THANH-7 Assessment Tool: THANH-7 Assessment 12593 ([id number]) Vital Signs *Quality* - Advance Care Planning discussion: Completed/Scanned ([id number]) Vital Signs *Quality* - Time spent: 16-45 minutes ([id number])
== END 2023-11-22 09:26 | disposition home or self-care (01) ==
PROVIDERS: PCP Internal Medicine; Visit Provider Internal Medicine
DX: I44.4 Left anterior fascicular block (principal); K64.4 Residual hemorrhoidal skin tags; Z01.818 Encounter for other preprocedural examination; Z00.00 Encounter for general adult medical examination without abnormal findings; Z82.49 Family history of ischemic heart disease and other diseases of the circulatory system; Z85.42 Personal history of malignant neoplasm of other parts of uterus
CPT/HCPCS: 1123F; 99214; 99497

== ENCOUNTER 2023-11-22 09:26 | Outpatient (REF) | payer MEDICARE, SELFPAY ==
[2023-11-22 13:50] LABS: Folate 13.6 ng/mL (> or = 4.0); Vitamin B12 762 pg/mL (200-900)
[2023-11-22 14:01] LABS: Alanine Aminotransferase 11 U/L (0-31); Anion Gap 14 (12-20); Aspartate Amino Transferase 20 U/L (5-31); Blood Urea Nitrogen 8 mg/dL (9-16); Calcium 9.9 mg/dL (8.4-10.2); Carbon Dioxide 27 mmol/L (22-29); Chloride 103 mmol/L (96-108); Cholesterol 180 mg/dL (<200); Estimated Glomerular Filt Rate > 60; Glucose Fasting 97 mg/dL (60-99); HDL Cholesterol 68 mg/dL (>40); LDL Cholesterol Calculated 91 mg/dL (<100); Potassium 4.2 mmol/L (3.3-5.1); Sodium 140 mmol/L (135-145); Triglycerides 106 mg/dL (<150)
[2023-11-22 14:16] LABS: Vitamin D 25-OH Total 44.3 ng/mL (>30)
== END 2023-11-22 09:27 | disposition home or self-care (01) ==
LOC: HO.HMGCLDS 09:26
PROVIDERS: PCP Internal Medicine; Visit Provider Internal Medicine
DX: Z85.42 Personal history of malignant neoplasm of other parts of uterus (principal); Z78.0 Asymptomatic menopausal state; Z01.818 Encounter for other preprocedural examination; K28.9 Gastrojejunal ulcer, unspecified as acute or chronic, without hemorrhage or perforation; K64.4 Residual hemorrhoidal skin tags; Z13.220 Encounter for screening for lipoid disorders
CPT/HCPCS: 36415; 80048; 80061; 82306; 82607; 82746; 84450; 84460

== ENCOUNTER 2024-02-20 13:33 | Outpatient (AMB) | payer MEDICARE, SELFPAY ==
[2024-02-20 13:45] VITALS: BP 116/70; PULSE 66; BMI 35.8
--- NOTE | 2024-02-20 13:45 | MHC.OFFVIS ---
Vital Signs 02/20/24 13:45 Height 5 ft 1 in Weight 189 lb 9.561 oz BMI 35.8 BP 116/70 Blood Pressure Location Lt brachial Position Sitting Pulse 66 Intake Visit Reasons: palliative senior np/Espinas/LT ant fasc block/Fam hx IHD Intake Note: New Lt ant fasc block on EKG seen in 2019 by HS feeling good Loin Trimmer Required: No Glue Specialty Supervisor: Glue Specialty Supervisor Present Accompanied by: Spouse Allergies No Known Allergies [No Known Allergies*] Allergy (Verified 11/22/23 09:22) Medication List - Last Reconciled 02/20/24 by Ruben Hart MD ascorbic acid (vitamin C) 500 mg PO DAILY calcium carbonate (Calcium 600) 600 mg PO DAILY famotidine (Pepcid AC) 10 mg PO BEDTIME Lactobac. rhamnosus GG-inulin 10 billion cell -200 mg ([facility] [employer] [facility]) tabs PO Lactobacillus rhamnosus GG ([email or web address]) 1 cap PO DAILY multivitamin 1 tab PO DAILY psyllium husk (Metamucil) 0.4 grams PO BEDTIME pyridoxine (vitamin B6) 25 mg PO DAILY sucralfate 1 g PO QID turmeric 400 mg PO DAILY HPI Comments Details: Thank you for referring Jonelle in cardiology consultation today for abnormal EKG. She recently had EKG performed was told that there was a glitch and was referred here for further cardiac evaluation. She walks on a treadmill without any obvious symptoms. Denies any exertional chest pain or shortness of breath. She has no symptoms lightheadedness, syncope. No orthopnea, PND. EKG shows bifascicular block with right bundle and left anterior fascicular block. She has no significant cardiovascular risk factors with no history of hypertension, diabetes hyperlipidemia. However she has strong family history from mother having premature cardiac that at 64. Unclear etiology but she says her heart pump function was 11%, probably cardiomyopathy. She denies any heart failure symptoms of orthopnea, PND, leg edema. Denies any prolonged palpitation irregular heartbeat. [facility] Medical History Family history of early CAD Left anterior fascicular block (LAFB) External hemorrhoids without complication C. difficile colitis History of depression Hx of cancer of endometrium Family history of malignant neoplasm of ovary in first degree relative Menopause Endometrial adenocarcinoma Anastomotic ulcer S/P gastric bypass Varicose veins of both lower extremities Mild intermittent asthma Surgical History History of total abdominal hysterectomy and bilateral salpingo-oophorectomy Hx of varicose veins History of hysteroscopy History of endoscopy Hx of cholecystectomy H/O gastric bypass Family History Father History of angina Cancer of prostate High cholesterol Anxiety Mental health disorder Mother Myocardial infarction Maternal Grandfather Stomach cancer Maternal Grandmother Colon cancer Myocardial infarction Paternal Grandfather Myocardial infarction Paternal Grandmother Myocardial infarction Brother No problems noted. Brother No problems noted. Daughter No problems noted. Sister Ovarian cancer, Onset Age: 64 Son No problems noted. Social History Household Members: Spouse Housing: House Are you a primary senior caregiver to a significant other at home: No Do you presently have visiting nurse or other home services: No Alcohol intake: never Patient Tobacco Use Status: Never used Tobacco e-Cigarette/Vaping Use: Never Used Second Hand Smoke Exposure: No service: No Current occupational status: retired Cognitive needs: No Hearing needs: No Vision needs: Yes Review of Systems Const Denies chills, Denies daytime sleepiness, Denies fatigue, Denies fever(s), Denies frequent falls, Denies poor appetite, Denies snoring, Denies stops breathing during sleep, Denies weakness, Denies weight gain and Denies weight loss Eyes Denies loss of vision ENT Denies dizziness and Denies hearing loss Card Denies chest pain, Denies claudication, Denies leg edema, Denies lightheadedness, Denies palpitations, Denies dyspnea, Denies dyspnea on exertion and Denies orthopnea Resp Denies cough, Denies excessive phlegm production, Denies dyspnea, Denies dyspnea on exertion, Denies snoring and Denies wheezing GI Denies abdominal pain, Denies hematochezia, Denies change in bowel habits, Denies nausea and Denies vomiting Denies urinary frequency and Denies dysuria Musc Denies arthralgias, Denies muscle weakness, Denies numbness and Denies other (frequent falls) Skin/Breast Denies nail changes and Denies rash Neuro Denies Abnormal speech present, Denies dizziness, Denies frequent falls, Denies loss of vision, Denies memory loss, Denies numbness and Denies weakness Psych Denies depression and Denies memory loss Endo Denies fatigue and Denies palpitations Evans/Lymph Reports easy bruising and Reports other (anemia) Aller/Immun Denies wheezing Physical Exam Vital Signs: Last Vital Signs Pulse 66 02/20/24 13:45 BP 116/70 02/20/24 13:45 BMI result Body Mass Index 35.8 Const General: cooperative, comfortable, no acute distress, alert, awake and Physically active Nutritional Appearance: obese Orientation/consciousness: patient oriented x3 Limitations: no limitations HEENT Head: Yes normocephalic and Yes atraumatic Neck Neck: Yes trachea midline, Yes supple and Yes no JVD Resp Effort & Inspection: normal respiratory effort Auscultation: clear to auscultation bilaterally Cardio Jugular venous distension: no JVD Palpation: normal PMI Rate: regular rate Rhythm: regular rhythm Heart sounds: S1 normal heart sound present, S2 normal heart sound present, no click, no gallops, no murmurs and no rubs GI Auscultation: normal bowel sounds Skin General skin exam: no rashes or lesions noted Neuro General: patient oriented x3 and no focal motor deficits Speech: No Abnormal speech present Extrem General: Yes no clubbing, cyanosis or edema Office Procedures EKG Details: EKG shows normal sinus rhythm with right bundle and left anterior fascicular block with suggestion of left ventricular hypertrophy., unchanged from October EKG [id number], Complete Assessment & Plan Assessment & Plan (1) Bifascicular block: Code(s): I45.2 - Bifascicular block Category: Medical Plan: New onset bifascicular block in this elderly woman with risk factors of family history of premature coronary artery disease/congestive heart failure. Need to rule out underlying structural heart disease. Would suggest a echocardiogram to assess LV systolic and diastolic function and to evaluate for regional wall motion abnormality. Will also obtain a exercise myocardial perfusion imaging to rule out any evidence of myocardial ischemia although less likely. Had a long discussion about pathophysiology of bifascicular block and management. In absence of any symptoms no further therapy is required. Low risk for progressive went to complete heart block was discussed which would require pacing therapy. This was discussed with her. Will continue monitor clinically by EKG annually. Advised to call me with any new symptoms. Follow up in the clinic in 6 weeks time, sooner p.r.n.. Thank you for allowing me to partake in her care Orders: Orders CA echo transthoracic complete Today I45.2 - Bifascicular block CA stress test Today I45.2 - Bifascicular block NM cardiolite stress test 2 Weeks I45.2 - Bifascicular block, R07.9 - Chest pain, unspecified Coding Level of Care Code New Pt Level 4 (93050) Diagnoses Bifascicular block I45.2 CPT Codes EKG - CPT: 39051-[id number], Complete ([id number])
== END 2024-02-20 14:16 | disposition home or self-care (01) ==
PROVIDERS: PCP Internal Medicine; Visit Provider Internal Medicine Cardiovascular Disease
DX: I45.2 Bifascicular block (principal)
CPT/HCPCS: 93010; 99214

== ENCOUNTER → 2024-02-20 13:33 | Outpatient (BNVA) | payer MEDICARE, SELFPAY | PROVIDERS: PCP Internal Medicine; Visit Provider Internal Medicine Cardiovascular Disease | DX: I45.2 Bifascicular block (principal); Z82.41 Family history of sudden cardiac death | CPT/HCPCS: 93005; 99212 ==

== ENCOUNTER → 2024-03-26 07:50 | Outpatient (REF) | payer MEDICARE, SELFPAY ==
--- NOTE | ~2024-03-26 | NM_ITS ---
EXERCISE MYOCARDIAL PERFUSION STUDY INDICATION: Bifascicular block TECHNIQUE: The patient was brought in for an exercise perfusion study on 03/26/2024. Patient performed exercise as per Kirill protocol and was injected 30 mCi of sestamibi once target heart rate was achieved. Images were obtained using the SPECT gamma camera interlaced with the gating device. Images were obtained in supine position. Resting perfusion study was performed on 03/27/2024. Patient was administered 30 mCi of sestamibi intravenously at rest. Images were then obtained in supine position. Total DLP 107 mGy-cm. Images were processed with the software and compared side to side in short axis, horizontal long axis and vertical long axis views. FINDINGS: Raw aquisition reviewed. The stress perfusion study showed diminished tracer uptake in the distal gallbladder wall. Basal part of inferior wall including the adjacent septum. With CT attenuation correction, some improvement in this lateral defect. The gated study shows normal LV systolic function with calculated LVEF of 64%. LV cavity is normal in size. The gated study shows diminished basal inferior thickening including adjacent septum. Resting study shows diminished tracer uptake in the distal bilateral wall, similar to the stress acquisition. Improved uptake in the inferior wall and distal septum compatible stress acquisition. Gating at rest reveals normal wall motion with ejection fraction at 49%, but visually higher. The findings are consistent with fixed distal lateral defect; reversible defect in the basal part of inferior wall, adjacent septum and inferolateral wall. NM/NM cardiolite stress test IMPRESSION: 1. Myocardial perfusion imaging study shows ischemia in the basal part of inferior, inferoseptal and inferolateral wall; nontransmural infarct in the distal lateral wall.. 2. Gated LVEF is 64% during stress. Usually normal during rest. 3. Transient ischemic dilatation not present. EKG component of the test reported separately. Electronically signed by: Beka Williamson MD 03/28/2024 10:21 AM EDT
--- NOTE | 2024-03-26 07:53 | CA_ITS ---
Transthoracic Echocardiogram Patient (Last, First, Middle): Jonelle Trammell, Gender: Female Date of : 1950 Age: 73 Procedure Date: 03/26/2024 Procedure Type: Transthoracic Echocardiogram Location: OP Height: 154.94 cm Weight: 86.18 kg BSA: 1.85 m2 Heart Rate: bpm BP: 122 / 60 mmHg Entry Clerk: Referring MD: Ruben Hart MD Symptoms: I45.2 - Bifascicular block Study Quality: Good ECG Rhythm: Sinus Conclusions: - The left ventricular systolic function is normal. The calculated ejection fraction is 63% by biplane method. - The basal inferior and basal inferolateral segments are hypokinetic. - No obvious valvular pathology seen on this study. Findings Left Ventricle Normal left ventricular cavity size. There is mildly increased left ventricular wall thickness. The left ventricular systolic function is normal. The calculated ejection fraction is 63% by biplane method. Diastolic function is normal for age. Wall Motion Rest Echo Findings The basal inferior and basal inferolateral segments are hypokinetic. Right Ventricle Normal right ventricular cavity size and systolic function. Atria Both atria are normal in size. Aortic Valve There is a normal trileaflet aortic valve. There is no aortic valve stenosis. There is no aortic valve regurgitation. Mitral Valve The mitral valve appears normal. There is trace mitral valve regurgitation. There is no mitral valve stenosis. Pulmonic Valve The pulmonic valve is likely normal. Tricuspid Valve Normal tricuspid valve structure. There is trace tricuspid valve regurgitation. There is no evidence of pulmonary hypertension. Great Vessels The asc aorta is normal in size. Venous The inferior vena cava is normal in size and collapses greater than 50% with inspiration. Pericardium/Pleural There is no evidence of pericardial effusion. Prior Study Comparison Changes noted compared to prior study dated: 05/31/2016. see comment on wall motion. Recommendations, Care & Conclusions No obvious valvular pathology seen on this study. Measurements 2D Linear Measurements IVSd: 1.09 0.6-0.9/0.6-1.0 cm LVIDd: 4.53 3.9-5.3/4.2-5.9 cm LVIDd Index: 2.45 2.4-3.2/2.2-3.1 cm/m2 LVIDs: 3.19 2.0-3.6 cm LVPWd: 1.09 0.7-1.1 cm Ao Root: 3.20 2.1-3.5 cm LA Diam: 3.60 2.7-3.8/3.0-4.0 cm LAIDs Index: 1.95 1.5-2.3 cm/m2 LV Mass: 217.52 67-162/88-224 g LV Mass Index: 117.58 43-95/49-115 g/m2 LVOT Diam: 2.00 3.0+(-)1.3 cm 2D Systolic Function EF 4C: 60.60 >55% EF 2C: 64.50 >55% EF BiP: 63.10 >55% Mitral Valve MV Pk E: 0.51 MV PK A: 0.69 MV Decel Time: 234.00 E/A: 0.70 E'Lateral: 5.00 E'Medial: 5.22 E/E' Med: 9.80 E/E' Lat: 10.20 PHT: 69.00 MVA PHT: 3.19 Decel Spencer: 2.18 Aortic Valve AoV Pk Zach: 1.30 AoV Pk Grad: 7.00 LVOT LVOT Pk Zach: 0.99 LVOT Mn Zach: 0.64 LVOT VTI: 0.24 LVOT Pk Grad: 4.00 LVOT Mn Grad: 2.00 LVOT Diam: 2.00 LVOT Area: 3.14 Diastolic Function MV Pk E: 0.51 MV Pk A: 0.69 E/A: 0.70 E'Medial: 5.22 E/E' Med: 9.80 E' Laterial: 5.00 E/E' Lat: 10.20 Right Ventricle TAPSE (mm): 27.00 TVS' Zach: 12.00 Tricuspid Valve TR Pk Zach: 1.96 TR Pk Grad: 15.00 RA Press: 3.00 RVSP: 18.00 Great Vessels Aorta Ao Root-2D: 3.20 2.0-3.7 cm Ao Asc: 3.50 2.1-3.4 cm Pulmonary Valve PV Pk Zach: 0.77 Peak PV Grad: 2.00 Updated in Other Vendor System with Status of Final Beka Williamson MD electronically signed on 03/26/2024 10:49:41 AM with status of Final
--- NOTE | 2024-03-26 07:53 | CA_ITS ---
Acquisition Time: 2024-03-26 08:54:32 Total Exercise Time: 00:05:01 Test Indications: Abnormal ECG Medications: SEE H Protocol: WATSON Max HR: 130 BPM 88% of Pred: 147 BPM Max BP: 152/070 mmHG Max Work Load: 7.0 METS Exercise stress test with exercise 5 min 1 sec of Watson protocol, achieving 88% MPHR, without anginal symptoms, without arrythmia, with normotensive response to exercise, without EKG changes meeting criteria for ischemia. Nuclear stress test pending. Test reviewed with Dr Williamson. Referred By: Ruben Hart Overread By: JANI DASILVA
== END ==
LOC: HO.CARD 07:50
PROVIDERS: PCP Internal Medicine; Visit Provider Internal Medicine Cardiovascular Disease
DX: R07.9 Chest pain, unspecified (principal); I45.2 Bifascicular block
CPT/HCPCS: 78452; 93017; 93306; A9500

== ENCOUNTER → 2024-03-26 07:53 | Outpatient (BNV) | payer MEDICARE, SELFPAY | PROVIDERS: PCP Internal Medicine; Visit Provider Internal Medicine | DX: R94.31 Abnormal electrocardiogram [ECG] [EKG] (principal); I45.2 Bifascicular block | CPT/HCPCS: 78452; 93016; 93018; 93350 ==

== ENCOUNTER 2024-04-02 13:13 | Outpatient (AMB) | payer MEDICARE, SELFPAY ==
[2024-04-02 13:27] VITALS: BP 120/72; PULSE 69; BMI 36.4
--- NOTE | 2024-04-02 13:27 | A.OFFVIS_ITS ---
Vital Signs 04/02/24 13:27 Height 5 ft 1 in Weight 192 lb 10.944 oz BMI 36.4 BP 120/72 Blood Pressure Location Lt brachial Position Sitting Pulse 69 Pulse Source Pulse Oximeter Intake Visit Reasons: 6 wk fu (NS) Char House Supervisor Required: No Continuous Miner Operator Helper: Continuous Miner Operator Helper Present Allergies No Known Allergies [No Known Allergies*] Allergy (Verified 04/02/24 13:31) Medication List - Last Reconciled 04/02/24 by BRIDGET Mosley ascorbic acid (vitamin C) 500 mg PO DAILY calcium carbonate (Calcium 600) 600 mg PO DAILY famotidine (Pepcid AC) 10 mg PO BEDTIME Lactobac. rhamnosus GG-inulin 10 billion cell -200 mg (Gaosouyi) tabs PO Lactobacillus rhamnosus GG (Lango) 1 cap PO DAILY multivitamin 1 tab PO DAILY psyllium husk (Metamucil) 0.4 grams PO BEDTIME pyridoxine (vitamin B6) 25 mg PO DAILY sucralfate 1 g PO QID turmeric 400 mg PO DAILY HPI HPI 6 wk fu (NS): Details: Jonelle is a 73-year-old female with family history of early CAD who was recently seen in consultation for abnormal EKG showing bifascicular block. She underwent a stress test and echocardiogram and now presents for follow-up. Today she reports she has been feeling well. She denies having any chest discomfort at rest or with activity. No concerning shortness of breath, PND, orthopnea or edema. No lightheadedness, presyncope, syncope, falls. She reports good activity tolerance. is present. [facility] Medical History Family history of early CAD Left anterior fascicular block (LAFB) External hemorrhoids without complication C. difficile colitis History of depression Hx of cancer of endometrium Family history of malignant neoplasm of ovary in first degree relative Menopause Endometrial adenocarcinoma Anastomotic ulcer S/P gastric bypass Varicose veins of both lower extremities Mild intermittent asthma Surgical History History of total abdominal hysterectomy and bilateral salpingo-oophorectomy Hx of varicose veins History of hysteroscopy History of endoscopy Hx of cholecystectomy H/O gastric bypass Family History Father History of angina Cancer of prostate High cholesterol Anxiety Mental health disorder Mother Myocardial infarction Maternal Grandfather Stomach cancer Maternal Grandmother Colon cancer Myocardial infarction Paternal Grandfather Myocardial infarction Paternal Grandmother Myocardial infarction Brother No problems noted. Brother No problems noted. Daughter No problems noted. Sister Ovarian cancer, Onset Age: 64 Son No problems noted. Social History Household Members: Spouse Housing: House Are you a primary home care nurse to a significant other at home: No Do you presently have visiting nurse or other home services: No Alcohol intake: never Patient Tobacco Use Status: Never used Tobacco e-Cigarette/Vaping Use: Never Used Second Hand Smoke Exposure: No service: No Current occupational status: retired Cognitive needs: No Hearing needs: No Vision needs: Yes Review of Systems Const All systems reviewed & are unremarkable except as noted in HPI and below ENT Denies dizziness Card Denies chest pain, Denies chest pain at rest, Denies chest pain with activity, Denies rapid heart rate, Denies pedal edema, Denies edema, Denies leg edema, Denies lightheadedness, Denies palpitations, Denies dyspnea, Denies dyspnea on exertion and Denies orthopnea Resp Denies cough, Denies dyspnea and Denies dyspnea on exertion GI Denies hematochezia and Denies change in stool character Musc Denies abnormal gait, Denies limited range of motion, Denies muscle cramps, Denies muscle weakness, Denies numbness, Denies radiating pain into limb, Denies stiffness and Denies tingling Neuro Denies abnormal gait, Denies dizziness, Denies numbness and Denies tingling Endo Denies palpitations Physical Exam Vital Signs: Last Vital Signs Pulse 69 04/02/24 13:27 BP 120/72 04/02/24 13:27 BMI result Body Mass Index 36.4 Const General: cooperative, healthy appearing, comfortable and no acute distress Orientation/consciousness: patient oriented x3 Neck Neck: Yes normal visual inspection Resp Effort & Inspection: normal respiratory effort Auscultation: clear to auscultation bilaterally, no rales, no rhonchi and no wheezes Cardio Jugular venous distension: no JVD Rate: regular rate Rhythm: regular rhythm Heart sounds: S1 normal heart sound present, S2 normal heart sound present, no murmurs and no rubs Neuro General: patient oriented x3 Extrem General: Yes normal to inspection and No no pedal edema Psych Appearance: grossly normal Mental Status: mental status grossly normal Speech and movement: Normal speech and movement present Assessment & Plan Assessment & Plan (1) Bifascicular block: Code(s): I45.2 - Bifascicular block Category: Medical Plan: EKG finding sinus rhythm with bifascicular block which was newer for her. No known cardiac history. She cardiac risks of family history of CAD, age. She has no reports of anginal symptoms. She underwent an echocardiogram on 03/26/2024 showing EF 63%, basal inferior and basal inferior lateral hypokinesis. She had a exercise nuclear stress test on 03/26/2024 with exercise 5 minutes with no angina, no EKG changes and nuclear imaging showing ischemia in the basal part of the inferior and inferior septal and inferior lateral wall, nontransmural infarct distal lateral wall. Test results reviewed with her. She continues to report no symptoms. Will order a CTA of the coronary arteries for further evaluation. Basic metabolic profile ordered. She has no known contrast dye allergy. Signs and symptoms of angina reviewed with her. Recommend she start on a daily aspirin. She does report having an issue with a gastric ulcer in the past. She will be seeing her GI provider, Dr. Barragan soon and will ask him about taking a coated baby aspirin. She tells me she has never had elevated cholesterol. Labs done 11/22/2023 showed LDL 91. She is somewhat reluctant to start statin at this time. Will wait for the CTA and plan to start statin therapy with ideal LDL goal less than 70 if CAD is found. Cardiology follow-up 3 months or sooner if needed (2) Abnormal nuclear stress test: Code(s): R94.39 - Abnormal result of other cardiovascular function study Category: Medical Plan: As above (3) Abnormal finding on echocardiogram: Code(s): R93.1 - Abnormal findings on diagnostic imaging of heart and coronary circulation Category: Medical Plan: As above Plan Time spent on chart review, documentation, interview and assessment Orders: Orders CT Cardiac Coronary Angio Today I45.2 - Bifascicular block, R93.1 - Abnormal findings on diagnostic imaging of heart and coronary circulation, R94.39 - Abnormal result of other cardiovascular function study Basic Metabolic Panel Today R94.39 - Abnormal result of other cardiovascular function study Coding Level of Care Code Est Pt Level 4 (45760) Diagnoses Bifascicular block I45.2 Abnormal nuclear stress test R94.39 Abnormal finding on echocardiogram R93.1 Time Spent (min) 30
== END 2024-04-02 14:19 | disposition home or self-care (01) ==
PROVIDERS: PCP Internal Medicine; Visit Provider Nurse Practitioner Family
DX: I45.2 Bifascicular block (principal); R94.39 Abnormal result of other cardiovascular function study; R93.1 Abnormal findings on diagnostic imaging of heart and coronary circulation
CPT/HCPCS: 99214

== ENCOUNTER → 2024-04-02 13:13 | Outpatient (BNVA) | payer MEDICARE, SELFPAY | PROVIDERS: PCP Internal Medicine; Visit Provider Nurse Practitioner Family | DX: I45.2 Bifascicular block (principal); R94.39 Abnormal result of other cardiovascular function study; R93.1 Abnormal findings on diagnostic imaging of heart and coronary circulation | CPT/HCPCS: 99212 ==

== ENCOUNTER 2024-05-28 13:44 | Outpatient (REF) | payer MEDICARE, SELFPAY ==
[2024-05-28 16:36] LABS: Anion Gap 13 (12-20); Blood Urea Nitrogen 12 mg/dL (9-16); Calcium 9.6 mg/dL (8.4-10.2); Carbon Dioxide 24 mmol/L (22-29); Chloride 109 mmol/L (96-108); Estimated Glomerular Filt Rate > 60; Glucose Random 61 mg/dL (60-115); Potassium 3.8 mmol/L (3.3-5.1); Sodium 142 mmol/L (135-145)
== END 2024-05-28 13:45 | disposition home or self-care (01) ==
LOC: HO.HMGCLDS 13:44
PROVIDERS: PCP Internal Medicine; Visit Provider Nurse Practitioner Family
DX: R94.39 Abnormal result of other cardiovascular function study (principal)
CPT/HCPCS: 36415; 80048

== ENCOUNTER 2024-06-27 07:49 | Outpatient (REF) | payer MEDICARE, SELFPAY ==
--- NOTE | ~2024-06-27 | MM_ITS ---
EXAMINATION: MM SCREENING DIGITAL BREAST TOMOSYNTHESIS, BILATERAL CLINICAL INFORMATION: Screening. Asymptomatic. COMPARISON: Mammography: Comparison is made with available priors TECHNIQUE: Digital breast mammography with tomosynthesis is performed in both the craniocaudal and mediolateral oblique views along with computer-aided detection (CAD). FINDINGS: There are scattered areas of fibroglandular density (ACR BI-RADS breast composition Category b). There are no significant masses, abnormal calcifications, or other abnormalities. MM/MM tomosynthesis screening BI IMPRESSION: No mammographic evidence of malignancy. ASSESSMENT: BI-RADS BI-RADS 1 - Negative RECOMMENDATION: Routine annual mammography screening. 1 year F/U This examination should not preclude the clinical evaluation of a suspicious palpable abnormality. This patient's information was entered into a reminder system with a target due date for their next mammogram. Electronically signed by: Latia Mcgee DO 07/03/2024 09:34 AM [place]
--- OUTSIDE RECORDS SUMMARY | 2024-07-02 23:29 | XMS_ITS ---
Author Organization [facility] Address [address] [place] [address] Care Team Providers Care House Father Name Role Phone Lory BAILEY, Ayla Primary Care Provider Jim Trejo Unavailable [phone] CARMELA MOLINA Unavailable Unavailable ALLERGIES No Known Allergies REASON FOR VISIT Patient presents today for a screening colon MEDICATIONS Medication SIG (Take, Route, Frequency, Duration) Notes Start Date End Date Status Calcium + D3 Active Famotidine 20 MG 1 Orally Twice a day for 90 days 04/16/2024 Active Sucralfate 1 GM 1 tablet on an empty stomach Orally Three times a day for 90 days 04/16/2024 Active Sucralfate 1 GM TAKE 1 TABLET 3 TIME S A DAYBEFORE MEALS AND AT BEDTIMEON AN EMPTY STOMACH for 90 Active Probiotic - 1 capsule Orally once a day Active Vitamin B50 Complex - 1 Orally QD Active Iron 325 (65 Fe) MG 1 tablet Orally Once a day Active Vitamin C 500 MG as directed Orally Active Multivitamins - 1 Orally QD Ac tive Carafate 1 GM 1 tablet Orally QID 10/24/2017 Active Famotidine 20 MG 1 tablet Orally Once a day Active Cholestyramine 4 GM/DOSE 07/27 up to 1 sco op once or twice a day . mix in water or orange juice. Orally Once or twice a day for diarrhea for 30 day(s) 04/16/2024 Active Turmeric Active PROBLEMS Problem Type ICD Code Onset Dates Problem Status W/U Status Risk SNOMED Code Notes Problem Vomiting (R11.10) Active confirmed Vomiting (261530933) Problem Colon cancer screening (Z12.11) Active confirmed Colon cancer screening (088259799) VITAL SIGNS BMI 35.87 kg/m2 04/16/2024 Blood pressure systolic 00 mm Hg 04/16/20 Blood pressure diastolic 00 mm Hg 024 Height 61.50 in 04/16/2024 Weight 193 lbs 04/16/2024 Encounters Encounter Location Date Provider Diagnosis [facility] [address] [place] [address] 04/16/2024 Jim Barragan Vomiting R11.10 ; Colon cancer screening Z12.11 and History of adenomatous polyp of colon Z86.010 ASSESSMENTS Encounter Date Diagnosis Assessment Notes Treatment Notes Treatment Clinical Notes 04/16/2024 Vomiting (ICD-10 - R11.10) If you start aspirin from the Treasury Representative then you need to take the Sucralfate three times a day before every meal and use the Famotidine twice a day to hopefully prevent recurrence of an ulcer Need Cardiology clearance for the procedures 04/16/2024 Colon cancer screening (ICD-10 - Z12.11) Call me with the results of your Cardiac testing in case we have to postpone the procedures 04/16/2024 History of adenomatous polyp of colon (ICD-10 - Z86.010) 04/16/2024 Other I will send ove r a prescription for a powder to use once or twice a day to help decrease the diarrhea PLAN OF TREATMENT Medication Medication Name Sig Start Date Stop Date Notes Famotidine 20 MG 1 Orally Twice a day for 90 days 04/16/20 Sucralfate 1 GM 1 tablet on an empty stomach Orally Three times a day for 90 days 04/16/2024 Cholestyramine 4 GM/DOSE 07/27 up to 1 sco op once or twice a day . mix in water or orange juice. Orally Once or twice a day for diarrhea for 30 day(s) 04/16/2024 Treatment Notes Assessment Notes Vomiting If you start aspirin from the [employer] Representative then you need to take the Sucralfate three times a day before every meal and use the Famotidine twice a day to hopefully prevent recurrence of an ulcer Need Cardiology clearance for the procedures Colon cancer screening Call me with the results of your Cardiac testing in case we have to postpone the procedures Other I will send over a p rescription for a powder to use once or twice a day to help decrease the diarrhea Future Test Test Name Order Date UPPER GI ENDOSCOPY 04/16/2024 COLONOSCOPY 04/16/2024 Next Appt Details Follow Up: prn, Reason: Provider Name:Jim Barragan , 09/18/2024 07:30:00 AM, [address] [place] [address], [phone], Progress Notes * Examination Category Sub-Category Detail Notes General Examination GENERAL APPEARANCE: pleasant , well nourished, well developed, in no acute distress EYES: sclera non-icteric NECK/THYROID: no cervical lymphade nopathy, neck supple HEART: S1, S2 normal LUNGS: clear to auscultatio n bilaterally ABDOMEN: normal bowel sounds, no guarding or rigidity, no hepatosplenomegaly, no masses palpable, soft, nontender, nondistended. NEUROLOGIC: alert and oriented SKIN: nonjaundiced, no spi timothy angiomata. EXTREMITIES: no edema ORAL CAVITY: mucosa moist
--- OUTSIDE RECORDS SUMMARY | 2024-07-02 23:29 | XMS_ITS ---
Author Organization [facility] Address [address] [place] [id number] Care Team Providers Care Criminal Investigative Agent Name Role Phone Lory BAILEY, Ayla Primary Care Provider Jim Trejo Unavailable [phone] CARMELA MOLINA Unavailable Unavailable REASON FOR VISIT refill scripts Encounters Encounter Location Date Provider Diagnosis [facility] [address] [place] [phone] 07/01/2024 Jim Barragan PLAN OF TREATMENT Next Appt Details Provider Name:Jim Barragan , 09/18/2024 07:30:00 AM, [address] [facility] , [place], [place], [phone],
--- OUTSIDE RECORDS SUMMARY | 2024-07-02 23:30 | XMS_ITS | Patient Health Record ---
Author Organization [facility] Address [address] [place] [address] Care Team Providers Care Material Clerk Name Role Phone Lory BAILEY, Ayla Primary Care Provider Jim Trejo Unavailable [phone] MOLINA CARMELA Unavailable Unavailable ALLERGIES No Known Allergies REASON FOR REFERRAL No Information MEDICATIONS Medication SIG (Take, Route, Frequency, Duration) Notes Start Date End Date Status Famotidine 20 MG 1 tablet Orally Once a day Active Calcium + D3 Active Sucralfate 1 GM TAKE 1 TABLET 3 TIME S A DAYBEFORE MEALS AND AT BEDTIMEON AN EMPTY STOMACH for 90 Active Cholestyramine 4 GM/DOSE 1/4 up to 1 sco op once or twice a day . mix in water or orange juice. Orally Once or twice a day for diarrhea for 30 day(s) 04/16/2024 Active Vitamin B50 Complex - 1 Orally QD Active Famotidine 20 MG 1 Orally Twice a day for 90 days 04/16/2024 Active Iron 325 (65 Fe) MG 1 tablet Orally Once a day Active Sucralfate 1 GM 1 tablet on an empty stomach Orally Three times a day for 90 days 04/16/2024 Active Vitamin C 500 MG as directed Orally Active Turmeric Active Probiotic - 1 capsule Orally once a day Active Carafate 1 GM 1 tablet Orally QID 10/24/2017 Active Multivitamins - 1 Orally QD Ac tive SOCIAL HISTORY Sex Assigned At : Social History Observation Description Sex Assigned At Unknown PROBLEMS Problem Type ICD Code Onset Dates Problem Status W/U Status Risk SNOMED Code Notes Problem Colon cancer screening (Z12.11) Active confirmed Colon cancer screening (779527068) Problem Encounter for screening for malignant neoplasm of colon (Z12.11) Active confirmed 682703103 Problem History of adenomatous polyp of colon (Z86.010) Active confirmed 722688760 Problem Change in bowel habits (R19.4) Active confirmed 337266579 Problem Diarrhea, unspecified type (R19.7) Active confirmed 60122320 Problem Vomiting (R11.10) Active confirmed Vomi ting (941217559) Problem Incontinence of feces, unspecified fecal incontinence type (R15.9) Active confirmed 22132264 Problem Anastomotic ulcer S/P gastric bypass (K28.9) Active confirmed 778129326 VITAL SIGNS Blood pressure diastolic 00 mm Hg 04/16/2024 Height 61.50 in 04/16/2024 Blood pressure systolic 00 mm Hg 04/16/2024 Weight 193 lbs 04/16/2024 BMI 35.87 kg/m2 04/16/2024 Encounters Encounter Location Date Provider Diagnosis [facility] [address] [place] [phone] 04/16/2024 Jim Barragan Vomiting R11.10 ; Colon cancer screening Z12.11 and History of adenomatous polyp of colon Z86.010 [facility] [address] [place] [phone] 07/01/2024 Jim Barragan ASSESSMENTS Encounter Date Diagnosis Assessment Notes Treatment Notes Treatment Clinical Notes 04/16/2024 Colon cancer screening (ICD-10 - Z12.11) Call me with the results of your Cardiac testing in case we have to postpone the procedures 04/16/2024 Vomiting (ICD-10 - R11.10) If you start aspirin from the Able Seaman then you need to take the Sucralfate three times a day before every meal and use the Famotidine twice a day to hopefully prevent recurrence of an ulcer Need Cardiology clearance for the procedures 04/16/2024 History of adenomatous polyp of colon (ICD-10 - Z86.010) 04/16/2024 Other I will send patricia parsons a prescription for a powder to use once or twice a day to help decrease the diarrhea PLAN OF TREATMENT Future Test Test Name Order Date COLONOSCOPY 09/05/2012 COLONOSCOPY 09/18/2018 UPPER GI ENDOSCOPY 04/16/2024 COLONOSCOPY 04/16/2024 Next Appt Details Provider Name:Jim Barragan , 09/18/2024 07:30:00 AM, [address] [facility] , [place], [place], [phone], Insurance Providers Payer Name Payer Address Payer Phone Subscriber Number Group Number Insured Name Patient Relationship to Insured Coverage Start Date Coverage End Date MEDICARE OF [place] [address] [place] [address] [id number] YOUSIFJEAN GRACE ROSS Self - patient is the insured MEDEX ATTN CLAIMS [address] [place] [address] [phone] [id number] GRACE DESOUZA Self - patient is the insured MEDICAL (GENERAL) HISTORY Medical History History ICD Code Colonoscopy 07-31-2006-small t ubular adenoma removed---negative colonoscopy in 2012 Depression Mild asthma Denies [place],DM,CVA,renal disease Uterine cancer--surgery as below UGI bleed in 09/2017 --EGD at [facility] [place]anastomotic ulcer and esophagitis--needed 1 u PRBC--gastric biopsies were negative for H. pylori Negative colonoscopy in 2018 C. difficile infection in for which she was hospitalized in [place], [place] for about 2 weeks. She had not been on any preceding antibiotics and attributed the C. difficile infection to being on omeprazole. She subsequently stopped that and began using famotidine. ETT was abnormal in summer--sees Dr. Hart---told of a LBBB and thinks she will be having a CT angiogram study done of the coronary arteries in May of 2024 [address] then followup with Dr. Hart in June of 2024. Surgical History Surgery Date(Month/Year) Gastric bypass with 100 pound weight los s in 2004--Dr. Watkins Cholecystectomy SHARRI for uterine cancer 08/2017--uterine c ancer Tubal ligation Laser surgery on legs--veins Cataract surgery
== END 2024-06-27 07:50 | disposition home or self-care (01) ==
LOC: HO.MAMMO 07:49
PROVIDERS: PCP Internal Medicine; Visit Provider Internal Medicine
DX: Z12.31 Encounter for screening mammogram for malignant neoplasm of breast (principal)
CPT/HCPCS: 77063; 77067

== ENCOUNTER → 2024-06-27 08:00 | Outpatient (BNV) | payer MEDICARE, SELFPAY | PROVIDERS: PCP Internal Medicine; Visit Provider Internal Medicine | DX: Z12.31 Encounter for screening mammogram for malignant neoplasm of breast (principal) | CPT/HCPCS: 77063; 77067 ==

== ENCOUNTER 2024-07-15 13:54 | Outpatient (AMB) | payer MEDICARE, SELFPAY ==
--- OUTSIDE RECORDS SUMMARY | 2024-07-15 13:56 | XMS_ITS ---
Author Organization [facility] Address [address] [place] [address] Care Team Providers Care Sieve Repairer Name Role Phone Lory BAILEY, Ayla Primary Care Provider Jim Trejo Unavailable [phone] CARMELA MOLINA Unavailable Unavailable ALLERGIES No Known [...] Notes Problem Vomiting (R11.10) Active confirmed Vomiting (833322922) Problem Colon cancer screening (Z12.11) Active confirmed Colon cancer screening (098168942) VITAL SIGNS BMI 35.87 kg/m2 04/16/2024 Blood pressure systolic 00 mm Hg 04/16/20 Blood pressure diastolic 00 mm Hg 024 Height 61.50 in 04/16/2024 Weight 193 lbs 04/16/2024 Encounters Encounter Location Date Provider Diagnosis [facility] [address] [place] [address] 04/16/2024 Jim Barragan Vomiting R11.10 ; Colon cancer screening Z12.11 and History of adenomatous polyp of colon Z86.010 ASSESSMENTS Encounter Date Diagnosis Assessment Notes Treatment Notes Treatment Clinical Notes 04/16/2024 Vomiting (ICD-10 - R11.10) If you start aspirin from the Wardrobe Technician then you need to take the Sucralfate [...] Vomiting If you start aspirin from the Wardrobe Technician then you need to take the Sucralfate [...] Provider Name:Jim Barragan , 09/18/2024 07:30:00 AM, [address] [place] [address], [phone], Progress Notes * Examination Category Sub-Category Detail [...]
--- OUTSIDE RECORDS SUMMARY | 2024-07-15 13:56 | XMS_ITS | Patient Health Record ---
Author Organization [facility] Address [address] [place] [address] Care Team Providers Care Speech Lang Path Therapist Name Role Phone Lory BAILEY, Ayla Primary Care Provider Jim Trejo Unavailable [phone] MOLINA CARMELA Unavailable Unavailable ALLERGIES No Known [...] screening (Z12.11) Active confirmed Colon cancer screening (280151010) Problem Encounter for screening for malignant neoplasm of colon (Z12.11) Active confirmed 780453195 Problem History of adenomatous polyp of colon (Z86.010) Active confirmed 691897781 Problem Change in bowel habits (R19.4) Active confirmed 802090549 Problem Diarrhea, unspecified type (R19.7) Active confirmed 34022215 Problem Vomiting (R11.10) Active confirmed Vomi ting (548249674) Problem Incontinence of feces, unspecified fecal incontinence type (R15.9) Active confirmed 83958222 Problem Anastomotic ulcer S/P gastric bypass (K28.9) Active confirmed 356749909 VITAL SIGNS Blood pressure diastolic 00 mm Hg 04/16/2024 Height 61.50 in 04/16/2024 Blood pressure systolic 00 mm Hg 04/16/2024 Weight 193 lbs 04/16/2024 BMI 35.87 kg/m2 04/16/2024 Encounters Encounter Location Date Provider Diagnosis [facility] [address] [place] [phone] 04/16/2024 Jim Barragan Vomiting R11.10 ; Colon cancer screening Z12.11 and History of adenomatous polyp of colon Z86.010 [facility] [address] [place] [phone] 07/01/2024 Jim Barragan ASSESSMENTS Encounter Date Diagnosis Assessment Notes Treatment Notes Treatment Clinical Notes 04/16/2024 Colon cancer screening (ICD-10 - Z12.11) Call me with the results of your Cardiac testing in case we have to postpone the procedures 04/16/2024 Vomiting (ICD-10 - R11.10) If you start aspirin from the Chief Nurse then you need to take the Sucralfate [...] Name:Jim Barragan , 09/18/2024 07:30:00 AM, [address] [facility] , [place], [place], [phone], Insurance Providers Payer Name Payer Address Payer Phone Subscriber Number Group Number Insured Name Patient Relationship to Insured Coverage Start Date Coverage End Date MEDICARE OF [place] [address] [place] [address] [id number] YOUSIFJEAN GRACE ROSS Self - patient is the insured MEDEX ATTN CLAIMS [address] [place] [address] [id number] GRACE DESOUZA Self - patient is the insured MEDICAL (GENERAL) HISTORY Medical History History ICD Code Colonoscopy 07-31-2006-small t ubular adenoma removed---negative colonoscopy in 2012 Depression Mild asthma Denies [place],DM,CVA,renal disease Uterine cancer--surgery as below UGI bleed in 09/2017 --[place] [facility] [place]anastomotic ulcer and esophagitis--needed 1 u PRBC--gastric biopsies were negative for H. pylori Negative colonoscopy in 2018 C. difficile infection in for which she was hospitalized in [place], [place] for about 2 weeks. She had [...]
--- OUTSIDE RECORDS SUMMARY | 2024-07-15 13:56 | XMS_ITS ---
Author Organization [facility] Address [address] [place] [address] Care Team Providers Care Department Store General Manager Name Role Phone Lory BAILEY, Ayla Primary Care Provider Jim Trejo Unavailable [phone] CARMELA MOLINA Unavailable Unavailable REASON FOR VISIT refill scripts Encounters Encounter Location Date Provider Diagnosis [facility] [address] [place] [phone] 07/01/2024 Jim Barragan PLAN OF TREATMENT Next Appt Details Provider Name:Jim Barragan , 09/18/2024 07:30:00 AM, [address] [facility] , [place], [place], [phone],
[2024-07-15 14:11] VITALS: BP 122/70; PULSE 65; BMI 36.6
--- NOTE | 2024-07-15 14:11 | MHC.OFFVIS ---
Vital Signs 07/15/24 14:11 Height 5 ft 1 in Weight 193 lb 9.054 oz BMI 36.6 BP 122/70 Blood Pressure Location Lt brachial Position Sitting Pulse 65 Pulse Source Pulse Oximeter Intake Visit Reasons: 3 mth fu Doctor Of Medicine Required: No Applications Engineer: Applications Engineer Present Allergies No Known Allergies [No Known Allergies*] Allergy (Verified 07/15/24 14:13) Medication List - Last Reconciled 07/15/24 by Samreen Man PAN DEVULCANIZER-C albuterol sulfate 90 mcg/actuation 2 puffs inhalation Q6H PRN ascorbic acid (vitamin C) 500 mg PO DAILY calcium carbonate (Calcium 600) 600 mg PO DAILY famotidine (Pepcid AC) 10 mg PO BEDTIME Lactobac. rhamnosus GG-inulin 10 billion cell -200 mg ([employer]) tabs PO Lactobacillus rhamnosus GG (SensingStrip) 1 cap PO DAILY multivitamin 1 tab PO DAILY psyllium husk (Metamucil) 0.4 grams PO BEDTIME pyridoxine (vitamin B6) 25 mg PO DAILY sucralfate 1 g PO QID HPI HPI 3 mth fu: Details: Jonelle is a 73-year-old female with family history of early CAD who was recently seen in consultation for abnormal EKG showing bifascicular block. She underwent a stress test and echocardiogram each of which showed abnormalities. She then underwent a CTA of the coronary arteries and now presents for follow-up. Today she reports she has been feeling well. She denies having any chest discomfort at rest or with activity. No concerning shortness of breath, PND, orthopnea or edema. No lightheadedness, presyncope, syncope, falls. She reports good activity tolerance. is present. [facility] Medical History Family history of early CAD Left anterior fascicular block (LAFB) External hemorrhoids without complication C. difficile colitis History of depression Hx of cancer of endometrium Family history of malignant neoplasm of ovary in first degree relative Menopause Endometrial adenocarcinoma Anastomotic ulcer S/P gastric bypass Varicose veins of both lower extremities Mild intermittent asthma Surgical History History of cataract surgery History of total abdominal hysterectomy and bilateral salpingo-oophorectomy Hx of varicose veins History of hysteroscopy History of endoscopy Hx of cholecystectomy H/O gastric bypass Family History Father History of angina Cancer of prostate High cholesterol Anxiety Mental health disorder Mother Myocardial infarction Maternal Grandfather Stomach cancer Maternal Grandmother Colon cancer Myocardial infarction Paternal Grandfather Myocardial infarction Paternal Grandmother Myocardial infarction Brother No problems noted. Brother No problems noted. Daughter No problems noted. Sister Ovarian cancer, Onset Age: 64 Son No problems noted. Social History Household Members: Spouse Housing: House Are you a primary point of care technician to a significant other at home: No Do you presently have visiting nurse or other home services: No Alcohol intake: never Patient Tobacco Use Status: Never used Tobacco e-Cigarette/Vaping Use: Never Used Second Hand Smoke Exposure: No service: No Current occupational status: retired Cognitive needs: No Hearing needs: No Vision needs: Yes Review of Systems Const All systems reviewed & are unremarkable except as noted in HPI and below ENT Denies dizziness Card Denies chest pain, Denies chest pain at rest, Denies chest pain with activity, Denies rapid heart rate, Denies pedal edema, Denies edema, Denies leg edema, Denies lightheadedness, Denies palpitations, Denies dyspnea, Denies dyspnea on exertion and Denies orthopnea Resp Denies cough, Denies dyspnea and Denies dyspnea on exertion GI Denies hematochezia and Denies change in stool character Musc Denies abnormal gait, Denies limited range of motion, Denies muscle cramps, Denies muscle weakness, Denies numbness, Denies radiating pain into limb, Denies stiffness and Denies tingling Neuro Denies abnormal gait, Denies dizziness, Denies numbness and Denies tingling Endo Denies palpitations Physical Exam Vital Signs: Last Vital Signs Pulse 65 07/15/24 14:11 BP 122/70 07/15/24 14:11 BMI result Body Mass Index 36.6 Const General: cooperative, healthy appearing, comfortable and no acute distress Orientation/consciousness: patient oriented x3 Neck Neck: Yes normal visual inspection Resp Effort & Inspection: normal respiratory effort Auscultation: clear to auscultation bilaterally, no rales, no rhonchi and no wheezes Cardio Jugular venous distension: no JVD Rate: regular rate Rhythm: regular rhythm Heart sounds: S1 normal heart sound present, S2 normal heart sound present, no murmurs and no rubs Neuro General: patient oriented x3 Extrem General: Yes normal to inspection and No no pedal edema Psych Appearance: grossly normal Mental Status: mental status grossly normal Speech and movement: Normal speech and movement present Assessment & Plan Assessment & Plan (1) Bifascicular block: Code(s): I45.2 - Bifascicular block Category: Medical Plan: Recent EKG finding sinus rhythm with bifascicular block which was newer for her. No known cardiac history. She cardiac risks of family history of CAD, age. She has no reports of anginal symptoms. She underwent an echocardiogram on 03/26/2024 showing EF 63%, basal inferior and basal inferior lateral hypokinesis. She had a exercise nuclear stress test on 03/26/2024 with exercise 5 minutes with no angina, no EKG changes and nuclear imaging showing ischemia in the basal part of the inferior and inferior septal and inferior lateral wall, nontransmural infarct distal lateral wall. Test results reviewed with her in detail. She continued to deny any symptoms. A CTA of the coronary arteries was done on 05/29/2024 which showed no evidence of atherosclerotic coronary disease. There is incidental finding of a micro nodule in the left lower lobe and small paraesophageal hernia. A copy of the report was given to her and reviewed with her. She will share with her other providers. In the absence of know coronary artery disease the findings on the nuclear stress test are likely false positive. It is on clear if the findings on the echocardiogram are related to her bifascicular block, or other reason. Plan for limited echocardiogram prior to her next visit. She is agreeable to this plan. Daily aspirin is not needed. With no known coronary disease ideal LDL goal is 100. Labs done 11/22/2023 showed LDL 91. No strong indication for statin at this time. Cardiology follow-up 6 months or sooner if needed (2) Abnormal nuclear stress test: Code(s): R94.39 - Abnormal result of other cardiovascular function study Category: Medical Plan: As above (3) Abnormal finding on echocardiogram: Code(s): R93.1 - Abnormal findings on diagnostic imaging of heart and coronary circulation Category: Medical Plan: As above Plan Time spent on chart review, documentation, interview and assessment Orders: Orders CA Echo Limited 5 Months R93.1 - Abnormal findings on diagnostic imaging of heart and coronary circulation Coding Level of Care Code Est Pt Level 3 (68316) Complex EM visit Add On G2211 Diagnoses Bifascicular block I45.2 Abnormal nuclear stress test R94.39 Abnormal finding on echocardiogram R93.1 Time Spent (min) 24
== END 2024-07-15 14:46 | disposition home or self-care (01) ==
PROVIDERS: PCP Internal Medicine; Visit Provider Nurse Practitioner Family
DX: I45.2 Bifascicular block (principal); R94.39 Abnormal result of other cardiovascular function study; R93.1 Abnormal findings on diagnostic imaging of heart and coronary circulation
CPT/HCPCS: 99213; G2211

== ENCOUNTER → 2024-07-15 13:54 | Outpatient (BNVA) | payer MEDICARE, SELFPAY | PROVIDERS: PCP Internal Medicine; Visit Provider Nurse Practitioner Family | DX: I45.2 Bifascicular block (principal); R94.39 Abnormal result of other cardiovascular function study; R93.1 Abnormal findings on diagnostic imaging of heart and coronary circulation | CPT/HCPCS: 99212 ==

== ENCOUNTER 2024-09-18 06:23 | Day surgery (SDC) | payer MEDICARE, SELFPAY ==
--- OUTSIDE RECORDS SUMMARY | 2024-07-09 07:51 | XMS_ITS ---
Author Organization [facility] Address [address] [place] [address] Care Team Providers Care Animal Pathologist Name Role Phone Lory BAILEY, Ayla Primary Care Provider Jim Trejo Unavailable [phone] CARMELA MOLINA Unavailable Unavailable REASON FOR VISIT refill scripts Encounters Encounter Location Date Provider Diagnosis [facility] [address] [place] [phone] 07/01/2024 Jim Barragan PLAN OF TREATMENT Next Appt Details Provider Name:Jim Barragan , 09/18/2024 07:30:00 AM, [address] [facility] , [place], [place], [phone],
--- OUTSIDE RECORDS SUMMARY | 2024-07-09 07:52 | XMS_ITS | Patient Health Record ---
Author Organization [facility] Address [address] [place] [address] Care Team Providers Care Naval Inspector Name Role Phone oLry BAILEY, Ayla Primary Care Provider Jim Trejo Unavailable [phone] MOLINA CARMELA Unavailable Unavailable ALLERGIES No Known [...] screening (Z12.11) Active confirmed Colon cancer screening (691805717) Problem Encounter for screening for malignant neoplasm of colon (Z12.11) Active confirmed 910089594 Problem History of adenomatous polyp of colon (Z86.010) Active confirmed 090778863 Problem Change in bowel habits (R19.4) Active confirmed 445304906 Problem Diarrhea, unspecified type (R19.7) Active confirmed 48356102 Problem Vomiting (R11.10) Active confirmed Vomi ting (378003804) Problem Incontinence of feces, unspecified fecal incontinence type (R15.9) Active confirmed 45473793 Problem Anastomotic ulcer S/P gastric bypass (K28.9) Active confirmed 149903960 VITAL SIGNS Blood pressure diastolic 00 mm Hg 04/16/2024 Height 61.50 in 04/16/2024 Blood pressure systolic 00 mm Hg 04/16/2024 Weight 193 lbs 04/16/2024 BMI 35.87 kg/m2 04/16/2024 Encounters Encounter Location Date Provider Diagnosis [facility] [address] [place] [phone] 04/16/2024 Jim Barragan Vomiting R11.10 ; Colon cancer screening Z12.11 and History of adenomatous polyp of colon Z86.010 [facility] [address] [place] [phone] 07/01/2024 Jim Barragan ASSESSMENTS Encounter Date Diagnosis Assessment Notes Treatment Notes Treatment Clinical Notes 04/16/2024 Colon cancer screening (ICD-10 - Z12.11) Call me with the results of your Cardiac testing in case we have to postpone the procedures 04/16/2024 Vomiting (ICD-10 - R11.10) If you start aspirin from the Glue Maker then you need to take the Sucralfate [...] Name:Jim Barragan , 09/18/2024 07:30:00 AM, [address] [facility] [facility] [facility] , [place], [place], [phone], Insurance Providers Payer Name Payer Address Payer Phone Subscriber Number Group Number Insured Name Patient Relationship to Insured Coverage Start Date Coverage End Date MED[place]ARE OF [place] [address] [place] [address] [id number] YOUSIFJEAN GRACE ROSS Self - patient is the insured MEDEX ATTN CLAIMS [address] [place] [address] [id number] GRACE DESOUZA Self - patient is the insured MEDICAL (GENERAL) HISTORY Medical History History ICD Code Colonoscopy 07-31-2006-small t ubular adenoma removed---negative colonoscopy in 2012 Depression Mild asthma Denies [place],DM,CVA,renal disease Uterine cancer--surgery as below UGI bleed in 09/2017 --EGD at [facility] [place]---anastomotic ulcer and esophagitis--needed 1 u PRBC--gastric biopsies were negative for H. pylori Negative colonoscopy in 2018 C. difficile infection in for which she was hospitalized in [place], [place] for about 2 weeks. She had [...]
--- OUTSIDE RECORDS SUMMARY | 2024-07-09 07:52 | XMS_ITS ---
Author Organization [facility] Address [address] [place] [address] Care Team Providers Care Metalworking Specialist Name Role Phone Lory BAILEY, Ayla Primary Care Provider Jim Trejo Unavailable [phone] CARMELA MOLINA Unavailable Unavailable ALLERGIES No Known [...] Notes Problem Vomiting (R11.10) Active confirmed Vomiting (642588719) Problem Colon cancer screening (Z12.11) Active confirmed Colon cancer screening (218205801) VITAL SIGNS BMI 35.87 kg/m2 04/16/2024 Blood pressure systolic 00 mm Hg 04/16/20 Blood pressure diastolic 00 mm Hg 024 Height 61.50 in 04/16/2024 Weight 193 lbs 04/16/2024 Encounters Encounter Location Date Provider Diagnosis [facility] [address] [place] [address] 04/16/2024 Jim Barragan Vomiting R11.10 ; Colon cancer screening Z12.11 and History of adenomatous polyp of colon Z86.010 ASSESSMENTS Encounter Date Diagnosis Assessment Notes Treatment Notes Treatment Clinical Notes 04/16/2024 Vomiting (ICD-10 - R11.10) If you start aspirin from the Core Worker then you need to take the Sucralfate [...] Vomiting If you start aspirin from the Core Worker then you need to take the Sucralfate [...] Provider Name:Jim Barragan , 09/18/2024 07:30:00 AM, [address] [place] [address], [phone], Progress Notes * Examination Category Sub-Category Detail [...]
[2024-09-16 14:01] VITALS: BMI 35.9
--- NOTE | 2024-09-17 08:18 | HO.ANESPROP2 ---
Documented by User: Selina Enamorado NP 09/17/24 08:23 HPI - Anesthesia Eval Consult details Narrative: 74yo F for Upper Endoscopy and Colonoscopy [place] [facility] [place] [place] bif[place]icular [place]. Work up with likely false positive stress test, negative coronary CTA. Optimized for endos per 06/2024 office visit. [facility] Active Problems Active Problems: All Active Problems Abnormal finding on echocardiogram (Acute) Abnormal nuclear stress test (Acute) Bifascicular block (Acute) Left anterior fascicular block (LAFB) (Acute) External hemorrhoids without complication (Acute) Varicose veins of both lower extremities (Acute) Past Medical History Medical History Family history of early CAD Left anterior fascicular block (LAFB) External hemorrhoids without complication C. difficile colitis History of depression Hx of cancer of endometrium Family history of malignant neoplasm of ovary in first degree relative Menopause Endometrial adenocarcinoma Anastomotic ulcer S/P gastric bypass Varicose veins of both lower extremities Mild intermittent asthma Family History Family History Father History of angina Cancer of prostate High cholesterol Anxiety Mental health disorder Mother Myocardial infarction Maternal Grandfather Stomach cancer Maternal Grandmother Colon cancer Myocardial infarction Paternal Grandfather Myocardial infarction Paternal Grandmother Myocardial infarction Brother No problems noted. Brother No problems noted. Daughter No problems noted. Sister Ovarian cancer, Onset Age: 64 Son No problems noted. Surgical History Surgical History History of cataract surgery History of total abdominal hysterectomy and bilateral salpingo-oophorectomy Hx of varicose veins History of hysteroscopy History of endoscopy Hx of cholecystectomy H/O gastric bypass Social History Social History Household Members: Spouse Housing: House Are you a primary caretaker grounds to a significant other at home: No Do you presently have visiting nurse or other home services: No Alcohol intake: never Patient Tobacco Use Status: Never used Tobacco e-Cigarette/Vaping Use: Never Used Second Hand Smoke Exposure: No Use of substances other than those prescribed or required for medical reasons: No Are you DNR?: No Advance Directives: No Advance Directives Information Provided: Yes service: No Current occupational status: retired Cognitive needs: No Hearing needs: No Vision needs: Yes Meds Allergies Allergy/AdvReac Type Severity Reaction Status Date / Time No Known Allergies Allergy Verified 07/15/24 14:13 [No Known Allergies*] Home Medications ?Medication ?Instructions ?Recorded ?Confirmed ?Last Taken ?Type ascorbic acid (vitamin C) 500 mg 500 mg PO DAILY 05/13/20 09/16/24 Unknown History capsule multivitamin 1 tab PO DAILY 05/13/20 09/16/24 Unknown History pyridoxine (vitamin B6) 50 mg 25 mg PO DAILY 05/13/20 09/16/24 Unknown History tablet sucralfate 1 gram tablet 1 g PO QID 05/17/20 09/16/24 Unknown History calcium carbonate (Calcium 600) 600 mg PO DAILY 02/23/21 09/16/24 Unknown History famotidine 10 mg tablet (Pepcid AC) 10 mg PO BEDTIME 04/29/22 09/16/24 Unknown History Lactobacillus rhamnosus GG 10 1 cap PO DAILY 11/22/23 09/16/24 Unknown History billion cell capsule (Culturelle) psyllium husk 0.4 gram capsule 0.4 g PO BEDTIME 11/22/23 09/16/24 Unknown History (Metamucil) Exam Height,Weight and Vital Signs: Height 5 ft 1.5 in Weight 87.543 kg Pertinent Lab Results Pertinent Lab Results: Laboratory Tests 05/28/24 14:05 Sodium 142 Potassium 3.8 Chloride 109 H Carbon Dioxide 24 BUN 12 Creatinine 0.76 Narrative Narrative: EKG 2023 Details: EKG shows normal sinus rhythm with right bundle and left anterior fascicular block with suggestion of left ventricular hypertrophy., unchanged from October EKG ECHO 2023 Conclusions: - The left ventricular systolic function is normal. The calculated ejection fraction is 63% by biplane method. - The basal inferior and basal inferolateral segments are hypokinetic. - No obvious valvular pathology seen on this study. AL cardiolite stress test 2023 IMPRESSION: 1. Myocardial perfusion imaging study shows ischemia in the basal part of inferior, inferoseptal and inferolateral wall; nontransmural infarct in the distal lateral wall.. 2. Gated LVEF is 64% during stress. Usually normal during rest. 3. Transient ischemic dilatation not present. EKG component of the test reported separately. CTA of the coronary arteries was done on 05/29/2024 which showed no evidence of atherosclerotic coronary disease Assessment and Plan Assessment Anesthesia Assessment: Chart Reviewed Documented by User: Carina Obando MD 09/18/24 08:38 [facility] Past Medical History Medical History Family history of early CAD Left anterior fascicular block (LAFB) External hemorrhoids without complication C. difficile colitis History of depression Hx of cancer of endometrium Family history of malignant neoplasm of ovary in first degree relative Menopause Endometrial adenocarcinoma Anastomotic ulcer S/P gastric bypass Varicose veins of both lower extremities Mild intermittent asthma Family History Family History Father History of angina Cancer of prostate High cholesterol Anxiety Mental health disorder Mother Myocardial infarction Maternal Grandfather Stomach cancer Maternal Grandmother Colon cancer Myocardial infarction Paternal Grandfather Myocardial infarction Paternal Grandmother Myocardial infarction Brother No problems noted. Brother No problems noted. Daughter No problems noted. Sister Ovarian cancer, Onset Age: 64 Son No problems noted. Family history of problems with anesthesia: No Surgical History Surgical History History of cataract surgery History of total abdominal hysterectomy and bilateral salpingo-oophorectomy Hx of varicose veins History of hysteroscopy History of endoscopy Hx of cholecystectomy H/O gastric bypass History of Problems with Anesthesia: No Social History Social History Household Members: Spouse Housing: House Are you a primary caretaker grounds to a significant other at home: No Do you presently have visiting nurse or other home services: No Alcohol intake: never Patient Tobacco Use Status: Never used Tobacco e-Cigarette/Vaping Use: Never Used Second Hand Smoke Exposure: No Use of substances other than those prescribed or required for medical reasons: No Are you DNR?: No Advance Directives: No Advance Directives Information Provided: Yes service: No Current occupational status: retired Cognitive needs: No Hearing needs: No Vision needs: Yes Meds Allergies Allergy/AdvReac Type Severity Reaction Status Date / Time No Known Allergies Allergy Verified 07/15/24 14:13 [No Known Allergies*] Home Medications ?Medication ?Instructions ?Recorded ?Confirmed ?Last Taken ?Type ascorbic acid (vitamin C) 500 mg 500 mg PO DAILY 05/13/20 09/16/24 Unknown History capsule multivitamin 1 tab PO DAILY 05/13/20 09/16/24 Unknown History pyridoxine (vitamin B6) 50 mg 25 mg PO DAILY 05/13/20 09/16/24 Unknown History tablet sucralfate 1 gram tablet 1 g PO QID 05/17/20 09/16/24 Unknown History calcium carbonate (Calcium 600) 600 mg PO DAILY 02/23/21 09/16/24 Unknown History famotidine 10 mg tablet (Pepcid AC) 10 mg PO BEDTIME 04/29/22 09/16/24 Unknown History Lactobacillus rhamnosus GG 10 1 cap PO DAILY 11/22/23 09/16/24 Unknown History billion cell capsule (Culturelle) psyllium husk 0.4 gram capsule 0.4 g PO BEDTIME 11/22/23 09/16/24 Unknown History (Metamucil) Exam Airway Mallampati Class: II TM Dist: >3cm Neck ROM: Full Heart: rrr Lungs: cta Assessment and Plan Assessment Anesthesia Assessment: Anesthesia Plan Discussed Final Anesthetic Review Family History of Problems with Anesthesia: No History of Problems with Anesthesia: No NPO: Yes ASA Class: III Final Preanesthetic Review: No Changes in Pt Med Stat, Meds/Allgs Chart Reviewed, Consent Obtained/Reviewed and Anes Risks/Benef Reviewed Patient Risk: Intermediate Procedure Risk: Low Anesthetic Plan Anesthetic Plan: MAC: Disposition: Standard PACU
[2024-09-18 07:16] VITALS: BP 135/69; PULSE 57; RESP 16; TEMP 36.9; O2SAT 98; BMI 35.2
[2024-09-18] MEDS: Lactated Ringers 1,000 ML 100 ML IVCONT (07:27)
[2024-09-18 08:41] VITALS: BP 113/62; PULSE 62; RESP 16; TEMP 36.2; O2SAT 98
--- NOTE | 2024-09-18 08:52 | PM.OP ---
Brief Operative Note Date of Service: 09/18/24 Pre-op diagnosis: GERD, Screening Post-op diagnosis: other (Gastritis, Diverticulosis) Procedure: EGD with biopsies, Colonoscopy to the cecum and TI Surgeon: Jim Barragan MD Anesthesia: MAC Was an Supervisor Prep used for this Procedure?: No Estimated blood loss (mL): 2.0 Pathology: other (A. Gastric anastomosis) Condition: stable Disposition: PACU
[2024-09-18 08:56] VITALS: BP 118/63; PULSE 61; RESP 16; TEMP 36.2; O2SAT 99
--- NOTE | 2024-09-18 09:22 | OP_ITS ---
DATE OF SERVICE: 09/18/2024 SURGEON: Jim Barragan MD INDICATIONS: The patient presents for evaluation of gastroesophageal reflux, personal history of tubular adenoma of the colon, family history of colon cancer, and colorectal cancer screening. Full consent has been obtained from her for both procedures, including risks of bleeding and perforation. PREOPERATIVE DIAGNOSIS: Gastroesophageal reflux and colorectal cancer screening. POSTOPERATIVE DIAGNOSIS: PROCEDURE PERFORMED: Esophagogastroduodenoscopy with biopsy and colonoscopy to the cecum and terminal ileum. ESTIMATED BLOOD LOSS: COMPLICATIONS: ANESTHESIA: Monitored anesthesia care. ASSISTANTS: SPECIMENS: POSTOPERATIVE DIAGNOSES: Gastroesophageal reflux and colorectal cancer screening, small hiatal hernia, gastritis in the area of anastomosis, diverticulosis and internal hemorrhoids. DESCRIPTION OF PROCEDURE: The patient was placed in the left lateral decubitus position. The Olympus video gastroscope was passed in the posterior oropharynx and upper esophagus under direct vision. Scope was passed slowly into the distal esophagus. The gastroesophageal junction appeared normal at 32 cm. There was no sign of any esophagitis. There was no Hoyos's mucosa. The scope entered the stomach. There was a small hiatal hernia. The hiatal hernia mucosa appeared normal. The scope was advanced into the stomach and to the anastomosis from her previous gastric bypass. There was some slight inflammation and erosions at the anastomosis, but no stricture, ulceration, nor mass. Scope easily passed this into the small bowel, which appeared normal. The anastomosis appeared normal and both the small bowel side and gastric side otherwise without any ulceration nor any sign of bleeding. Biopsies were obtained from the gastric side of the anastomosis. The scope was retroflexed visualizing the proximal stomach carefully, which appeared normal, without any sign of mass or ulceration. The scope was straightened and withdrawn back to the esophagus. The esophageal mucosa appeared normal. The scope was withdrawn from the patient. She tolerated the procedure well, was turned around for the colonoscopy. The digital rectal exam revealed no abnormalities. The Olympus video pediatric colonoscope was entered into the rectum and advanced easily to the cecum. Once in the cecum, I did identify normal-appearing cecal pouch with appendiceal orifice and a normal-appearing ileocecal valve. The terminal ileum was cannulated and appeared normal. The scope was withdrawn back in the colon. The entire cecum and ileocecal valve appeared normal. The scope was slowly withdrawn assessing all mucosal surfaces carefully. Preparation was excellent. I did not visualize any sign of polyps, colitis, nor angiodysplasia. There was a mild amount of sigmoid diverticulosis. In the rectum, scope was retroflexed visualizing internal hemorrhoids, but no other pathology. The rectal mucosa appeared normal. The scope was straightened and withdrawn from the patient. She tolerated the procedures well and was returned to the recovery area in stable condition. IMPRESSION: 1. Gastritis in area of anastomosis. 2. Hiatal hernia. 3. Diverticulosis. 4. Internal hemorrhoids. PLAN: The results of the biopsies will be checked. Given today's negative colonoscopy and her age, I do not think she will need any further screening colonoscopies. I did advise her to continue her current regimen of famotidine and sucralfate, as well as to go back on her cholestyramine, which has been working well for her previous diarrhea by her report today. In regard to the report of a small paraesophageal hernia seen on a CT scan of her chest in June, she is entirely asymptomatic in that regard. Given the small nature of the hernia, lack of any symptoms, her age, and previous gastric bypass surgery that would make any type of surgical intervention of the hernia. even more difficult, I would be inclined to observe this. She has been instructed to call if she has any problems in that regard. She was advised not to use any aspirin and NSAIDs for 1 week. MD VERITO Bautista/ELIGIO / [id number] MTDD
== END 2024-09-18 09:32 | disposition home or self-care (01) ==
PROVIDERS: PCP Internal Medicine; Visit Provider Internal Medicine
PROC: (CPT 43239; principal; 2024-09-18 07:30)
DX: Z12.11 Encounter for screening for malignant neoplasm of colon (principal); Z86.0101 Personal history of adenomatous and serrated colon polyps; Z80.0 Family history of malignant neoplasm of digestive organs; K57.30 Diverticulosis of large intestine without perforation or abscess without bleeding; K64.8 Other hemorrhoids; R11.10 Vomiting, unspecified; K29.50 Unspecified chronic gastritis without bleeding; K21.9 Gastro-esophageal reflux disease without esophagitis; K44.9 Diaphragmatic hernia without obstruction or gangrene; Z79.899 Other long term (current) drug therapy; Z98.0 Intestinal bypass and anastomosis status; Z98.84 Bariatric surgery status; Z98.890 Other specified postprocedural states
CPT/HCPCS: 43239; G0105; 88305; 88342; J2003; J2704

== ENCOUNTER 2024-09-24 10:24 | Outpatient (AMB) | payer MEDICARE, SELFPAY ==
--- NOTE | 2024-09-24 11:17 | A.OFFVIS_ITS ---
Intake Vital Signs 09/24/24 11:18 Height 5 ft 1.5 in Weight 195 lb BMI 36.2 BP 130/80 Blood Pressure Location Lt brachial Position Sitting Respiration 14 Pulse 62 Pulse Source Pulse Oximeter Temp 98.2 F Temp Source Oral Pulse Oximetry (%) 98 Oxygen Delivery Method Room Air Intake Visit Reasons: CASSANDRA G0439 Intake Note: Pt is here today for her SWV Allergies No Known Allergies [No Known Allergies*] Allergy (Verified 09/24/24 11:26) Medication List - Last Reconciled 09/24/24 by Ayla Henley MD albuterol sulfate 90 mcg/actuation 2 puffs inhalation Q6H PRN ascorbic acid (vitamin C) 500 mg PO DAILY calcium carbonate (Calcium 600) 600 mg PO DAILY cholestyramine (with sugar) 4 gram ea PO famotidine (Pepcid AC) 10 mg PO BEDTIME ferrous sulfate (FeroSul) 325 mg PO DAILY Lactobacillus rhamnosus GG (Culturelle) 1 cap PO DAILY multivitamin 1 tab PO DAILY pyridoxine (vitamin B6) 25 mg PO DAILY sucralfate 1 g PO QID turmeric mg PO HPI SWV G0439 HPI Details AWV ? 74 year old lady with history of endometrial cancer 4 years ago, seen at [facility] and currently being followed by [facility] OBGYN, get occasional heartburn, takes omeprazole as needed, presents for her ?subsequent Annual Wellness Visit. She is up-to-date with her screening mammogram and bone density scan done 06/27/2024 and 07/02/2021, latter showing osteopenia in left femoral neck and left femur normal in lumbar spine, due for repeat DEXA scan. She had cervical cancer screening done in 2013 with normal findings,, sees her OBGYN every 2 years , due to history of endometrial adenocarcinoma status post TAHBSO Colonoscopy done in 09/18/[address] Barragan which only showed presence of diverticulosis internal hemorrhoids , no longer needing another procedure after this per Dr. Barragan She underwent screening for dyslipidemia and diabetes mellitus in 2023, both which came back with normal findings. She does not want to get a COVID vaccination or flu shots up-to-date with her pneumococcal vaccination and shingles vaccine ? Medical / Social History Reviewed? Past Medical History ?Yes . ? [place] of Care / Care Team list updated ?Yes . ? Surgical/Hospitalization History ?Yes . ? Current Medications (including OTC and supplements) ?Yes . ? Family History ?Yes . ? Tobacco Control form ?Yes . ? AUDIT-C (Alcohol use) form ?Yes . ? Illicit drug use in Social History ?Yes . ? Current diagnosis of depression? ?No ? Appropriate PHQ2/PHQ9 completed ?Yes . ? Data entered by ?Duplicating Machine Mechanic and reviewed by provider ? Fall Risk ? Fall History? Have you had any falls with injury in the past year? ?No . ? Have you had two or more falls in the past year? ?No . ? Fall Risk Assessment: ?No falls in the past year . ? HRA filled out by the patient, reviewed by Provider and scanned. ? AWV ? Balance? Romberg ?negative ? Tandem walk ?Yes , but with difficulty. ? Walk and Turn ?Yes . ? Rise from sit to stand ?Yes . ?Vision? Corrective lens ?Yes ? Vision screen ? sees Mohamud Jacob, had cataract surgery ?Hearing? Whisper test ?pass . ?Written Plan?Completed. See Patient Documents.? [facility] Medical History (Updated 09/24/24 @ 11:49 by Ayla Henley MD) Osteopenia of multiple sites Family history of early CAD Left anterior fascicular block (LAFB) External hemorrhoids without complication C. difficile colitis History of depression Hx of cancer of endometrium Family history of malignant neoplasm of ovary in first degree relative Menopause Endometrial adenocarcinoma Anastomotic ulcer S/P gastric bypass Varicose veins of both lower extremities Mild intermittent asthma Surgical History History of cataract surgery History of total abdominal hysterectomy and bilateral salpingo-oophorectomy Hx of varicose veins History of hysteroscopy History of endoscopy Hx of cholecystectomy H/O gastric bypass Family History Father History of angina Cancer of prostate High cholesterol Anxiety Mental health disorder Mother Myocardial infarction Maternal Grandfather Stomach cancer Maternal Grandmother Colon cancer Myocardial infarction Paternal Grandfather Myocardial infarction Paternal Grandmother Myocardial infarction Brother No problems noted. Brother No problems noted. Daughter No problems noted. Sister Ovarian cancer, Onset Age: 64 Son No problems noted. Social History Household Members: Spouse Housing: House Are you a primary point of care specialist to a significant other at home: No Do you presently have visiting nurse or other home services: No Alcohol intake: never Patient Tobacco Use Status: Never used Tobacco e-Cigarette/Vaping Use: Never Used Second Hand Smoke Exposure: No service: No Current occupational status: retired Cognitive needs: No Hearing needs: No Vision needs: Yes Female Reproductive History Menstrual Other: Still currently being followed by OBGYN for routine pelvic exam due to history of endometrial carcinoma in the past Questionnaire Medicare Wellness Checkup What [age] What gender do you identify with?: female During the past 4 weeks, how much have you been bothered by emotional problems such as feeling anxious, depressed, irritable, sad or downhearted, and blue?: slightly During the past 4 weeks, has your physical & emotional health limited your social activities with family, friends, neighbors, or groups?: not at all During the past 4 weeks, how much bodily pain have you generally had?: no pain During the past 4 weeks, was someone available to help you if you needed & wanted help?: yes, as much as I wanted During the past 4 weeks, what was the hardest physical activity you could do for at least 2 minutes?: moderate Can you get to places out of walking distance without help? (For eg., can you travel alone on buses, taxis or drive your car?): Yes Can you go shopping for groceries or clothes without someone's help?: Yes Can you prepare your own meals?: Yes Can you do your housework without help?: Yes Because of any health problems, do you need the help of another person with your personal care needs such as eating, bathing, dressing or getting around the house?: No Can you handle your own money without help?: Yes During the past 4 weeks, how would you rate your health in general?: very good During the past 4 weeks how have things been going for you?: pretty well Are you having difficulties driving your car?: no Do you always fasten your seat belt when you are in a car?: yes, usually During past 4 weeks, have you been bothered by the following: never: Falling or dizzy when standing up, Sexual problems?, Trouble eating well?, Teeth or denture problems?, Problems using the telephone? and Tiredness or fatigue? Have you fallen 2 or more times in the past year?: No Are you afraid of falling?: No Are you a smoker?: no During the past 4 weeks, how many drinks of wine, beer, or other alcoholic beverages did you have?: no alcohol at all Do you exercise for about 20 minutes 3 or more times a week?: yes, all the time Have you been given information to help with the following?: no: Hazards in your house that might hurt you? and no: Keeping track of your medications? How often do you have trouble taking medicines the way you have been told to take them?: I always take medicine as prescribed How confident are you that you can control & manage most of your health problems?: very confident What is your race?: White Mini Mental State Exam (MMSE) Orientation What is the (year) (season) (date) (day) (month)?: year (2024), season (Winter), date (09/24/2024), day (Monday) and month (September) Where are we (state) (county) (town or city) (hospital) (floor)?: state ([place]), county ([place]), town or city ([place]) and hospital/clinic ([facility]) Score Score: 9 Activity of Daily Living Bathing - sponge bath, tub bath or shower: receives no assistance (gets in/out by self, if usual bathing means Dressing - getting clothes from closets & drawers, including inner/outer garments & fasteners.: gets clothes & gets completely dressed without help Toileting - going to the 'toilet room' for urine/bowel elimination & cleaning self/arranging clothes: goes to toilet room, cleans self, arranges clothes without help Transfer: moves in & out of bed and chair without help (may use support object) Continence: controls urination/bowel movements completely by self Feeding: feeds self without help Total Score: 0 Information obtained from: patient Using telephone: independent Traveling: independent Shopping: independent Preparing meals: independent Housework: independent Taking medicine: independent Managing money: independent PHQ-9 Over the last 2 weeks, how often have you been bothered by any of the following problems? 1. Little interest or pleasure in doing things: not at all 2. Feeling down, depressed, or hopeless: not at all 3. Trouble falling or staying asleep, or sleeping too much: not at all 4. Feeling tired or having little energy: not at all 5. Poor appetite or overeating: not at all 6. Feeling bad about yourself - or that you are a failure or have let yourself or your family down: not at all 7. Trouble concentrating on things, such as reading the newspaper or watching television: not at all 8. Moving or speaking so slowly that other people could have noticed. Or the opposite - being so fidgety or restless that you have been moving around a lot more than usual: not at all 9. Thoughts that you would be better off or of hurting yourself in some way: not at all Total score: 0 Depression Screening Interpretation: Negative Depression Screening Done: Yes 98205 - PHQ-9 Billing: Yes Source: Developed by Drs. Jim Winn, Lavonne Hobbs, Brian Sutton and colleagues, with an educational maki from [employer]. Physical Exam Vital Signs: Last Vital Signs Temp 98.2 F 09/24/24 11:18 Pulse 62 09/24/24 11:18 Resp 14 09/24/24 11:18 BP 130/80 09/24/24 11:18 Pulse Ox 98 09/24/24 11:18 Oxygen Delivery Method Room Air 09/24/24 11:18 BMI result Body Mass Index 36.2 Assessment & Plan Assessment & Plan (1) Osteopenia of multiple sites: Code(s): M85.89 - Other specified disorders of bone density and structure, multiple sites Plan: Ordered a repeat bone density scan for follow-up. Continue with calcium and vitamin-D 3 supplements in addition to doing regular weight-bearing exercise (2) Encounter for subsequent annual wellness visit (AWV) in Medicare patient: Code(s): Z00.00 - Encounter for general adult medical examination without abnormal findings Plan: Medical wellness check, discussed with patient and updated. Up-to-date with her vaccines, and no longer needing screening colonoscopy. Up-to-date with her screening mammogram still sees her OBGYN for routine pelvic exam. (3) Advanced directives, counseling/discussion: Code(s): Z71.89 - Other specified counseling Plan: Initiated the conversation about Advanced Directives. Advanced Directives help patients prepare for current and future decisions about their medical treatment and place of care. Discussed with patient that it is a process where a patients current condition and prognosis are reviewed, their wishes for information regarding their illness are elicited, and likely medical dilemmas are presented and options discussed. Already completed health care proxy in the past, MOLST form done today. These forms can be amended as needed, reviewed yearly and make changes as needed Orders: Orders XR DEXA axial skeleton Today M85.89 - Other specified disorders of bone density and structure, multiple sites Quality Reporting (2020) Depression/Bipolar (159/160/161/177) PHQ-9: Total score: 0 Coding Level of Care Code Medicare Subsequent (G0439) Diagnoses Osteopenia of multiple sites M85.89 Encounter for subsequent annual wellness visit (AWV) in Medicare patient Z00.00 Advanced directives, counseling/discussion Z71.89 CPT Codes Advance Care Planning - Time spent: 16-45 minutes ([id number]) Additional Codes PHQ-9 - 55903 - PHQ-9 Billing: Yes ([id number]) Advance Care Planning Advance Care Planning discussion: Completed/Scanned Date of discussion: 09/24/24 Who was present: Patient Forms completed: MOLST Time spent: 16-45 minutes Actual minutes spent: 3
[2024-09-24 11:18] VITALS: BP 130/80; PULSE 62; RESP 14; TEMP 36.8; O2SAT 98; BMI 36.2
--- OUTSIDE RECORDS SUMMARY | 2024-09-24 12:36 | XMS_ITS ---
Author Organization [facility] Address [address] [place] [address] Care Team Providers Care Internal Medicine Veterinary Technician Name Role Phone Lory BAILEY, Ayla Primary Care Provider Jim Trejo Unavailable [phone] CARMELA MOLINA Unavailable Unavailable REASON FOR VISIT HAD A CORONARY CT SCAN Encounters Encounter Location Date Provider Diagnosis [facility] [address] [place] [address] 07/25/2024 Jim Barragan PLAN OF TREATMENT No Information
--- OUTSIDE RECORDS SUMMARY | 2024-09-24 12:36 | XMS_ITS | Patient Health Record ---
Author Organization [facility] Address [address] [place] [address] Care Team Providers Care Psychosocial Rehabilitation Counselor Name Role Phone Lory BAILEY, Ayla Primary Care Provider Jim Trejo Unavailable [phone] CARMELA MOLINA Unavailable Unavailable ALLERGIES No Known Allergies RESULTS Component Value Reference Range Notes Pathology Reviewed date:09/20/2024 05:19:37 PM Interpretation: Performing Lab:[facility], [address] [place] [phone] Notes/Report: REASON FOR REFERRAL No Information MEDICATIONS Medication [...] screening (Z12.11) Active confirmed Colon cancer screening (891066513) Problem Encounter for screening for malignant neoplasm of colon (Z12.11) Active confirmed 426643447 Problem History of adenomatous polyp of colon (Z86.010) Active confirmed 212782442 Problem Change in bowel habits (R19.4) Active confirmed 780316016 Problem Diarrhea, unspecified type (R19.7) Active confirmed 99942281 Problem Vomiting (R11.10) Active confirmed Vomi ting (651137624) Problem Incontinence of feces, unspecified fecal incontinence type (R15.9) Active confirmed 74063723 Problem Anastomotic ulcer S/P gastric bypass (K28.9) Active confirmed 915421013 VITAL SIGNS Blood pressure diastolic 00 mm Hg 04/16/2024 Height 61.50 in 04/16/2024 Blood pressure systolic 00 mm Hg 04/16/2024 Weight 193 lbs 04/16/2024 BMI 35.87 kg/m2 04/16/2024 Encounters Encounter Location Date Provider Diagnosis [facility] Outpatient [address] [place] [id number] 09/18/2024 Jim Barragan [facility] [address] [facility] [address] [place] [phone] 04/16/2024 Jim Barragan Vomiting R11.10 ; Colon cancer screening Z12.11 and History of adenomatous polyp of colon Z86.010 [facility] [address] [facility] [address] [place] [phone] 07/01/2024 Jim Barragan [facility] [address] [place] [address] [address] [place] [phone] 07/25/2024 Jim Barragan ASSESSMENTS Encounter Date Diagnosis Assessment Notes Treatment Notes Treatment Clinical Notes 04/16/2024 Colon cancer screening (ICD-10 - Z12.11) Call me with the results of your Cardiac testing in case we have to postpone the procedures 04/16/2024 Vomiting (ICD-10 - R11.10) If you start aspirin from the [place] [facility] then you need to take the Sucralfate [...] 09/18/2018 UPPER GI ENDOSCOPY 04/16/2024 COLONOSCOPY 04/16/2024 Insurance Providers Payer Name Payer Address Payer Phone Subscriber Number Group Number Insured Name Patient Relationship to Insured Coverage Start Date Coverage End Date MEDICARE OF [place] [address] [place] [address] [id number] GRACE DESOUZA Self - patient is the insured [employer] ATTN CLAIMS [address] [place] [address] [id number] GRACE DESOUZA Self - patient is the insured MEDICAL (GENERAL) HISTORY Medical History History ICD Code Colonoscopy 07-31-2006-small t ubular adenoma removed---negative colonoscopy in 2012 Depression Mild asthma Denies VA,DM,CVA,renal disease Uterine cancer--surgery as below UGI bleed in 09/2017 --EGD at [facility]---anastomotic ulcer and esophagitis--needed 1 u PRBC--gastric biopsies were negative for H. pylori Negative colonoscopy in 2018 C. difficile infection in for which she was hospitalized in [place], [place] for about 2 weeks. She had [...]
--- OUTSIDE RECORDS SUMMARY | 2024-09-24 12:36 | XMS_ITS ---
Author Organization [facility] Address [address] [place] [address] Care Team Providers Care Water Fitness Instructor Name Role Phone Lory BAILEY, Ayla Primary Care Provider Jim Trejo Unavailable [phone] CARMELA MOLINA Unavailable Unavailable REASON FOR VISIT vomiting,hx polyps,screening Encounters Encounter Location Date Provider Diagnosis [facility] [place] [address] [place] [phone] 09/18/2024 Jim Barragan PLAN OF TREATMENT No Information
--- OUTSIDE RECORDS SUMMARY | 2024-09-24 12:36 | XMS_ITS ---
Author Organization [facility] Address [address] [place] [address] Care Team Providers Care Neurosurgical Nurse Practitioner Name Role Phone Lory BAILEY, Ayla Primary Care Provider Jim Trejo Unavailable [phone] CARMELA MOLINA Unavailable Unavailable REASON FOR VISIT refill scripts Encounters Encounter Location Date Provider Diagnosis [facility] [address] [place] [phone] 07/01/2024 Jim Barragan PLAN OF TREATMENT No Information
== END 2024-09-24 11:53 | disposition home or self-care (01) ==
PROVIDERS: PCP Internal Medicine; Visit Provider Internal Medicine
DX: Z00.00 Encounter for general adult medical examination without abnormal findings (principal); M85.89 Other specified disorders of bone density and structure, multiple sites; Z71.89 Other specified counseling

== ENCOUNTER → 2024-09-24 10:24 | Outpatient (BNVA) | payer MEDICARE, SELFPAY | PROVIDERS: PCP Internal Medicine; Visit Provider Internal Medicine | DX: Z00.00 Encounter for general adult medical examination without abnormal findings (principal); M85.89 Other specified disorders of bone density and structure, multiple sites; Z71.89 Other specified counseling | CPT/HCPCS: 96127 ==

== ENCOUNTER → 2024-12-13 08:43 | Outpatient (REF) | payer MEDICARE, SELFPAY ==
--- NOTE | 2024-12-13 08:45 | CA_ITS ---
Transthoracic Echocardiogram Patient (Last, First, Middle): Jonelle Trammell, Gender: Female Date of : 1950 Age: 74 Procedure Date: 12/13/2024 Procedure Type: Transthoracic Echocardiogram Location: OP Height: 154.94 cm Weight: 88.45 kg BSA: 1.87 m2 Heart Rate: 49 bpm BP: 130 / 80 mmHg Online Publisher: SB Referring MD: Samreen [employer] TECHNICIAN-Nasreen Symptoms: R93.1 - Abnormal findings on diagnostic imaging of heart and coronary ci... ECG Rhythm: Bradycardia Conclusions: - Normal left ventricular size and systolic function. The visually estimated ejection fraction is between 55-60%. There is no evidence of regional wall motion abnormalities. Findings Left Ventricle Normal left ventricular size and systolic function. The visually estimated ejection fraction is between 55-60%. There is no evidence of regional wall motion abnormalities. Right Ventricle Normal right ventricular cavity size and systolic function. Prior Study Comparison Changes noted compared to prior study dated: 03/26/2024. No definite regional wall motion abnormalities. Measurements 2D Linear Measurements IVSd: 1.21 0.6-0.9/0.6-1.0 cm LVIDd: 4.41 3.9-5.3/4.2-5.9 cm LVIDd Index: 2.36 2.4-3.2/2.2-3.1 cm/m2 LVIDs: 3.13 2.0-3.6 cm LVPWd: 0.67 0.7-1.1 cm LV Mass: 170.11 67-162/88-224 g LV Mass Index: 90.97 43-95/49-115 g/m2 2D Systolic Function EF 4C: 63.80 >55% EF 2C: 71.10 >55% EF BiP: 67.40 >55% Updated in Other Vendor System with Status of Final Freddy Zacarias MD electronically signed on 12/15/2024 9:55:46 PM with status of Final
--- OUTSIDE RECORDS SUMMARY | 2024-12-13 08:58 | XMS_ITS ---
Author Organization [facility] Address [address] [place] [address] Care Team Providers Care Melt House Centrifugal Operator Name Role Phone Lory BAILEY, Ayla Primary Care Provider Jim Trejo Unavailable [phone] CARMELA MOLINA Unavailable Unavailable REASON FOR VISIT vomiting,hx polyps,screening Encounters Encounter Location Date Provider Diagnosis [facility] Outpatient [address] [place] [phone] 09/18/2024 Jim Barragan Colon cancer scree sari [...] * EMILIA BRYANOB:[birth year] (74 yo F)Acc No.[id number]:09/18/2024 EGD and COL/MAC Patient:?GRACE BRYAN Provider:?Jim Barragan MD :1950???Age:74 Y???Sex:Female D ate:09/18/2024 Address:[address] [place] [address] Pcp:Ayla Henley MD Subjective: * Chief Complaints: * ???1. Vomiting,hx polyps,scr eening. * Medical History:? Objective: * Vitals:? Assessment: * Assessment: 1.?Colon cancer screening - Z12.11 (Primary)???2.?Family history of colon cancer - Z80.0???3.?Diverticulosis of large intestine without perforation or abscess without bleeding - K57.30???4.?Other hemorrhoids - K64.8???5.?Unspecified chronic gastritis without bleeding - K29.50???6.?Hiatal hernia - K44.9??? Plan: * Treatment: * Procedure Codes:?G0105 COLOR EC CANCR SCR; COLNSCPY HI RISK, 0529F INTRVL 3+YRS PTS CLNSCP DOCD, 0528F RCMND FLW-UP 10 YRS DOCD, Modifiers: 1P , 58026 UPPER GI ENDOSCOPY, BIOPSY * * The named appointment provid er may or may not be the originator of this progress note, and it is not deemed complete until electronically signed by the appointment provider. Sign off status: Pending * Provider:?Jim Barragan MD Date:? 025 Generated for Javier muniz/Arcadio/eTransmitting on:?12/13/2024 08:58 AM EDT
== END ==
LOC: HO.CARD 08:43
PROVIDERS: PCP Internal Medicine; Visit Provider Nurse Practitioner Family
DX: R93.1 Abnormal findings on diagnostic imaging of heart and coronary circulation (principal)
CPT/HCPCS: 93308

== ENCOUNTER → 2024-12-13 08:45 | Outpatient (BNV) | payer MEDICARE, SELFPAY | PROVIDERS: PCP Internal Medicine; Visit Provider Internal Medicine Cardiovascular Disease | DX: R94.31 Abnormal electrocardiogram [ECG] [EKG] (principal) | CPT/HCPCS: 93308 ==

== ENCOUNTER 2025-01-13 13:12 | Outpatient (AMB) | payer MEDICARE, SELFPAY ==
--- OUTSIDE RECORDS SUMMARY | 2024-09-18 03:30 | XMS_ITS ---
Author Organization [facility] Address [address] [place] [address] Care Team Providers Care Pressurised Container Filler Name Role Phone Lory BAILEY, Ayla Primary Care Provider Jim Trejo Unavailable [phone] CARMELA MOLINA Unavailable Unavailable REASON FOR VISIT vomiting,hx polyps,screening Encounters Encounter Location Date Provider [place] [facility] [place] [address] [place] [address] [id number] 09/18/2024 Jim Barragan Colon cancer scree sari Z12.11 ; Family history of colon cancer Z80.0 ; Diverticulosis of large intestine without perforation or abscess without bleeding K57.30 ; Other hemorrhoids K64.8 ; Unspecified chronic gastritis without bleeding K29.50 and Hiatal hernia K44.9 Assessments Encounter Date Diagnosis (ICD Code) Assessment Notes Treatment Notes Treatment Clinical Notes Section Notes 09/18/2024 Colon cancer screening (ICD-10 - Z12.11) 09/18/2024 Family history of colon cancer (ICD-10 - Z80.0) 09/18/2024 Diverticulosis of large intestine without perforation or abscess without bleeding (ICD-10 - K57.30) 09/18/2024 Other hemorrhoids (ICD-10 - K64.8) 09/18/2024 Unspecified chronic gastritis without bleeding (ICD-10 - K29.50) 09/18/2024 Hiatal hernia (ICD-10 - K44.9) Plan Of Treatment No Information Progress Notes * EMILIA BRYANOB:[birth year] (74 yo F)Acc No.[id number]:09/18/2024 EGD and COL/MAC Patient: GRACE ELAINE Provider: Tru Barragan MD :1950 A ge:74 Y S ex:Female Date:09/18/2024 Address:[address] [place], [place] [id number] Pcp:Ayla Henley MD Subjective: * Chief Complaints: * 1 . Vomiting,hx polyps,screening. * Medical History: Objective: * Vitals: Assessment: * Assessment: 1. C olon cancer screening - Z12.11 (Primary) 2 . F amily history of colon cancer - Z80.0 3 . D iverticulosis of large intestine without perforation or abscess without bleeding - K57.30 4 . O ther hemorrhoids - K64.8 5 . U nspecified chronic gastritis without bleeding - K29.50 6 . H iatal hernia - K44.9 Plan: * Treatment: * Procedure Codes: G 0105 COLOREC CANCR SCR; COLNSCPY HI RISK, 0529F INTRVL 3+YRS PTS CLNSCP DOCD, 0528F RCMND FLW-UP 10 YRS DOCD, Modifiers: 1P , 27195 UPPER GI ENDOSCOPY, BIOPSY * * The named appointment provid er may or may not be the originator of this progress note, and it is not deemed complete until electronically signed by the appointment provider. Sign off status: Pending * Provider: Tru Barragan MD Date: 0 09/18/2024 Generated for Javier muniz/Arcadio/Evitaitting on: 0 01/13/2025 02:37 PM EDT
--- NOTE | 2025-01-13 13:28 | A.OFFVIS_ITS ---
Vital Signs 01/13/25 13:29 Height 5 ft 1.5 in Weight 193 lb 1.999 oz BMI 35.9 BP 100/62 Blood Pressure Location Lt brachial Position Sitting Pulse 69 Pulse Source Monitor Intake Visit Reasons: 6 mth f/up Global Account Director Required: No Screening Tech: Screening Tech Present Allergies No Known Allergies (No Known Allergies*) Allergy (Verified 01/13/25 13:32) Medication List - Last Reconciled 01/13/25 by BRIDGET Mosley albuterol sulfate 90 mcg/actuation 2 puffs inhalation Q6H PRN ascorbic acid (vitamin C) 500 mg PO DAILY calcium carbonate (Calcium 600) 600 mg PO DAILY cholestyramine (with sugar) 4 gram ea PO famotidine (Pepcid AC) 10 mg PO BEDTIME ferrous sulfate (FeroSul) 325 mg PO DAILY Lactobacillus rhamnosus GG (Culturelle) 1 cap PO DAILY multivitamin 1 tab PO DAILY pyridoxine (vitamin B6) 25 mg PO DAILY sucralfate 1 g PO QID turmeric mg PO HPI HPI 6 mth f/up: Details: Jonelle is a 74-year-old female who underwent cardiac evaluation for abnormal EKG with finding of bifascicular block. She did have abnormal findings on an echocardiogram and nuclear stress test leading to a CTA of the coronary arteries showing no coronary artery disease. A recent repeat echocardiogram was done showing normal EF and wall motion. She now presents for follow-up. Today she reports she has been feeling well overall. Her primary symptom is fatigue after eating. She denies having any chest discomfort at rest or with activity. No concerning shortness of breath, PND, orthopnea or edema. No lightheadedness, presyncope, syncope, falls. She reports good activity tolerance. is present. [facility] Medical History (Updated 09/24/24 @ 11:49 by Ayla Henley MD) Osteopenia of multiple sites Family history of early CAD Left anterior fascicular block (LAFB) External hemorrhoids without complication C. difficile colitis History of depression Hx of cancer of endometrium Family history of malignant neoplasm of ovary in first degree relative Menopause Endometrial adenocarcinoma Anastomotic ulcer S/P gastric bypass Varicose veins of both lower extremities Mild intermittent asthma Surgical History History of cataract surgery History of total abdominal hysterectomy and bilateral salpingo-oophorectomy Hx of varicose veins History of hysteroscopy History of endoscopy Hx of cholecystectomy H/O gastric bypass Family History Father History of angina Cancer of prostate High cholesterol Anxiety Mental health disorder Mother Myocardial infarction Maternal Grandfather Stomach cancer Maternal Grandmother Colon cancer Myocardial infarction Paternal Grandfather Myocardial infarction Paternal Grandmother Myocardial infarction Brother No problems noted. Brother No problems noted. Daughter No problems noted. Sister Ovarian cancer, Onset Age: 64 Son No problems noted. Social History Household Members: Spouse Housing: House Are you a primary student career development specialist to a significant other at home: No Do you presently have visiting nurse or other home services: No Alcohol intake: never Patient Tobacco Use Status: Never used Tobacco e-Cigarette/Vaping Use: Never Used Second Hand Smoke Exposure: No service: No Current occupational status: retired Cognitive needs: No Hearing needs: No Vision needs: Yes Review of Systems Const All systems reviewed & are unremarkable except as noted in HPI and below Reports fatigue (after eating) ENT Denies dizziness Card Denies chest pain, Denies chest pain at rest, Denies chest pain with activity, Denies rapid heart rate, Denies pedal edema, Denies edema, Denies leg edema, Denies lightheadedness, Denies palpitations, Denies dyspnea, Denies dyspnea on exertion and Denies orthopnea Resp Denies cough, Denies dyspnea and Denies dyspnea on exertion GI Denies hematochezia and Denies change in stool character Musc Denies abnormal gait, Denies limited range of motion, Denies muscle cramps, Denies muscle weakness, Denies numbness, Denies radiating pain into limb, Denies stiffness and Denies tingling Neuro Denies abnormal gait, Denies dizziness, Denies numbness and Denies tingling Endo Reports fatigue (after eating) and Denies palpitations Physical Exam Vital Signs: Last Vital Signs Pulse 69 01/13/25 13:29 BP 100/62 01/13/25 13:29 BMI result Body Mass Index 35.9 Const General: cooperative, healthy appearing, comfortable and no acute distress Orientation/consciousness: patient oriented x3 Neck Neck: Yes normal visual inspection Resp Effort & Inspection: normal respiratory effort Auscultation: clear to auscultation bilaterally, no crackles, no rales, no rhonchi and no wheezes Cardio Rate: regular rate Rhythm: regular rhythm Heart sounds: S1 normal heart sound present, S2 normal heart sound present, no gallops, no murmurs and no rubs Neuro General: patient oriented x3 Extrem General: Yes normal to inspection and No no pedal edema Psych Appearance: grossly normal Mental Status: mental status grossly normal Speech and movement: Normal speech and movement present Office Procedures EKG Details: Today, read by me normal sinus rhythm with right bundle branch block and left anterior fascicular block, bifascicular block, minimal voltage criteria for LVH, rate 69, QTC 484 millisecond [id number], Complete Assessment & Plan Assessment & Plan (1) Bifascicular block: Code(s): I45.2 - Bifascicular block Category: Medical Plan: Last year she presented for evaluation of abnormal EKG with bifascicular block which was newer for her. No cardiac history. She has cardiac risks of family history of CAD, age. Cardiac testing ultimately revealed no coronary artery disease and normal EF. EKG today still shows sinus rhythm with bifascicular block. This finding was discussed with her in detail. Will plan cardiology follow-up in 1 year with EKG. She is agreeable to this plan. (2) Abnormal finding on echocardiogram: Code(s): R93.1 - Abnormal findings on diagnostic imaging of heart and coronary circulation Category: Medical Plan: Initial echocardiogram on 03/26/2024 showing EF 63%, basal inferior and basal inferior lateral hypokinesis. Exercise nuclear stress test on 03/26/2024 with exercise 5 minutes with no angina, no EKG changes and nuclear imaging showing ischemia in the basal part of the inferior and inferior septal and inferior lateral wall, nontransmural infarct distal lateral wall. A CTA of the coronary arteries was done on 05/29/2024 which showed no evidence of atherosclerotic coronary disease. It was then thought the nuclear stress test results were false positive. - A repeat limited echocardiogram was done 12/13/2024 showing EF 55-60%, no evidence of regional wall motion abnormality. (3) Abnormal nuclear stress test: Code(s): R94.39 - Abnormal result of other cardiovascular function study Category: Medical Plan: As above Plan I discussed with the patient that her bifascicular block will be monitored with periodic EKGs to watch for any progression. I explained that her coronary CTA was normal, and her heart function is good. We talked about her postprandial fatigue, and I mentioned that a heart monitor could be considered if symptoms persist. I advised her to stay hydrated and avoid extreme heat to manage her low blood pressure and prevent lightheadedness. I recommended a follow-up in one year unless she experiences new symptoms like significant heart rate changes or fainting. Patient Instructions: - Stay hydrated and avoid extreme heat to prevent lightheadedness. - Monitor for new symptoms such as fainting or significant heart rate changes. - Follow up in one year unless new symptoms develop. Patient was informed and verbally consented to the use of an ambient scribe for clinic note documentation during this visit. Visit time spent on chart review, interview, assessment, orders, documentation. Coding Level of Care Code Est Pt Level 4 (72868) Complex EM visit Add On G2211 Diagnoses Bifascicular block I45.2 Abnormal finding on echocardiogram R93.1 Abnormal nuclear stress test R94.39 CPT Codes EKG - CPT: [id number], Complete ([id number]) Time Spent (min) 28
[2025-01-13 13:29] VITALS: BP 100/62; PULSE 69; BMI 35.9
== END 2025-01-13 14:05 | disposition home or self-care (01) ==
LOC: HO.HCS 13:13
PROVIDERS: PCP Internal Medicine; Visit Provider Nurse Practitioner Family
DX: I45.2 Bifascicular block (principal); R93.1 Abnormal findings on diagnostic imaging of heart and coronary circulation; R94.39 Abnormal result of other cardiovascular function study
CPT/HCPCS: 93010; 99214; G2211

== ENCOUNTER → 2025-01-13 13:12 | Outpatient (BNVA) | payer MEDICARE, SELFPAY | PROVIDERS: PCP Internal Medicine; Visit Provider Nurse Practitioner Family | DX: I45.2 Bifascicular block (principal); R93.1 Abnormal findings on diagnostic imaging of heart and coronary circulation; R94.39 Abnormal result of other cardiovascular function study; R94.31 Abnormal electrocardiogram [ECG] [EKG] | CPT/HCPCS: 93005; 99212 ==

== ENCOUNTER 2025-07-03 07:43 | Outpatient (REF) | payer MEDICARE, SELFPAY ==
--- NOTE | ~2025-07-03 | MM_ITS ---
EXAMINATION: MM SCREENING DIGITAL BREAST TOMOSYNTHESIS, BILATERAL CLINICAL INFORMATION: Screening. Asymptomatic. COMPARISON: Mammography: Comparison is made with available priors TECHNIQUE: Digital breast mammography with tomosynthesis is performed in both the craniocaudal and mediolateral oblique views along with computer-aided detection (CAD). FINDINGS: There are scattered areas of fibroglandular density. There are no significant masses, abnormal calcifications, or other abnormalities. MM/MM tomosynthesis screening BI IMPRESSION: No mammographic evidence of malignancy. ASSESSMENT: BI-RADS Category 1: Negative RECOMMENDATION: Routine annual mammography screening. 1 year F/U This examination should not preclude the clinical evaluation of a suspicious palpable abnormality. This patient's information was entered into a reminder system with a target due date for their next mammogram. Electronically signed by: Latia Mcgee DO 07/04/2025 06:44 PM [facility]
--- NOTE | ~2025-07-03 | MM_ITS ---
EXAMINATION: DXA BONE DENSITY AXIAL HISTORY: M85.89 - Other specified disorders of bone density and structure, multiple... TECHNIQUE: [employer] Dual energy absorptiometry (DEXA) of the lumbar spine, total left hip, and femoral neck was performed. COMPARISON: Comparison is made with the prior examination dated 07/02/2021. FINDINGS: The bone mineral density of the lumbar spine is 1.030 g/cm2, corresponding to a T-score of -1.1, and a Z-score of -0.2. This is indicative of osteopenia. This represents a BMD change of -7.2% compared to the prior exam. This is statistically significant. The bone mineral density of the left total hip is 0.814 g/cm2, corresponding to a T-score of -1.5, and a Z-score of -0.4. This is indicative of osteopenia. This represents a BMD change of -1.8% compared to the prior exam. This is not statistically significant. The bone mineral density of the left femoral neck is 0.744 g/cm2, corresponding to a T-score of -2.1, and a Z-score of -0.7. This is indicative of osteopenia. This represents a BMD change of 5.2% compared to the prior exam. FRACTURE RISK: The FRAX index suggests a ten year probability of major osteoporotic fracture of 12.6%, and of hip fracture 3.2%. MM/XR DEXA axial skeleton IMPRESSION: Based on bone mineral density, and according to World Health Organization (WHO) criteria, the diagnosis is consistent with osteopenia. Statistically, 68% of repeat scans fall within 1 SD (+/- 0.010 g/cm2 for AP spine L1-L4) and 1 SD (+/- 0.012 g/cm2 for femur total) FRAX is a trademark of the [employer] [place] [facility] [employer], a World Health Organization (WHO) Collaborating Center. Electronically signed by: Jim Saunders MD 07/03/2025 10:28 AM [facility]
== END 2025-07-03 07:44 | disposition home or self-care (01) ==
LOC: HO.MAMMO 07:43
PROVIDERS: PCP Internal Medicine; Visit Provider Internal Medicine
DX: M85.89 Other specified disorders of bone density and structure, multiple sites (principal); Z12.31 Encounter for screening mammogram for malignant neoplasm of breast
CPT/HCPCS: 77063; 77067; 77080

== ENCOUNTER → 2025-07-03 08:15 | Outpatient (BNV) | payer MEDICARE, SELFPAY | PROVIDERS: PCP Internal Medicine; Visit Provider Radiology Diagnostic Radiology | DX: E28.39 Other primary ovarian failure (principal) | CPT/HCPCS: 77080 ==